=== PATIENT | male | born 1935 | race Caucasian/White ===

== ENCOUNTER → 2016-10-01 | Outpatient (CLI) | payer OTHER ==
[~2016-10-01] MED LIST: ASPEC81 PO; ATEN-173 PO; ATOR-22 PO; ATV1 PO; B-COCAP2 PO; GLUCOSAMINE CHRON PO; LEVO-217 PO; OMEG10007 PO; PRLSR20 PO; SAW PALMETTO PO; VIT C WITH ROSE HIPS PO
[2016-10-01 11:25] LABS: BLOOD UREA NITROGEN 27 mg/dl (7-18); BUN/CREATININE RATIO 22.3 (10-20)
[2016-10-01 11:29] LABS: PROSTATE SPECIFIC ANTIGEN 0.449 ng/ml (0.000-4.000)
== END | disposition home or self-care (01) ==
LOC: C.LAB 09:45
PROVIDERS: ATTEND Urology
DX: R33.9 Retention of urine, unspecified (principal)

== ENCOUNTER → 2017-01-07 | Outpatient (CLI) | payer OTHER ==
[2017-01-07 09:33] LABS: BASO % 0.6 %; BASO ABS # 0.03 K/uL (0-0.2); COMPLETE YES; EOS % 3.7 %; HEMATOCRIT 45.5 % (42-52); LYMPH % 27.9 %; LYMPH ABS # 1.52 K/uL (1.2-3.4); MEAN CELL VOLUME 92.3 fL (80-100); MEAN CORPUSCULAR HEMOGLOBIN 30.4 pg (25-34); MEAN PLATELET VOLUME 11.3 fL (7.4-10.4); MONO % 12.7 %; NEUT % 55.1 %; PLATELET COUNT 132 K/uL (130-400); RED BLOOD COUNT 4.93 M/uL (4.7-6.1); WHITE BLOOD COUNT 5.44 K/uL (4.8-10.8)
[2017-01-07 10:06] LABS: ESTIMATED AVERAGE GLUCOSE 123 mg/dl; HA1C FLAG Normal (Normal)
[2017-01-07 10:10] LABS: ALT/SGPT 28 U/L (12-78); AST/SGOT 36 U/L (15-37); BLOOD UREA NITROGEN 23 mg/dl (7-18); BUN/CREATININE RATIO 17.9 (10-20); CARBON DIOXIDE 27 mmol/L (21-32); CHLORIDE 109 mmol/L (98-107); GLUCOSE 105 mg/dl (70-99); POTASSIUM 4.5 mmol/L (3.5-5.1); SODIUM 144 mmol/L (136-145)
[2017-01-07 10:24] LABS: ALKALINE PHOSPHATASE 162 U/L (45-117); CHOLESTEROL 111 mg/dl (0-200); CHOLESTEROL/HDL RATIO 2.5; HDL CHOLESTEROL 44 mg/dl; LDL CHOLESTEROL CALCULATED 52 mg/dl; TRIGLYCERIDES 76 mg/dl (0-150); VERY LOW DENSITY LIPOPROT CALC 15 mg/dl
== END | disposition home or self-care (01) ==
LOC: C.LAB 07:03
PROVIDERS: ATTEND Internal Medicine
DX: N18.3 Chronic kidney disease, stage 3 (moderate) (principal); R73.01 Impaired fasting glucose; E03.9 Hypothyroidism, unspecified

== ENCOUNTER → 2017-09-23 | Outpatient (CLI) | payer OTHER ==
[~2017-09-23] MED LIST changes: +APIX1TAB3 PO; +ASPI-319 PO; +ATV/1 PO; +CHOL1000 PO; +CMD5 PO; +CRG3125 PO; +CRG625 PO; +DUTACAP PO; +DXY100 PO; +FURO-85 PO; +LEVO50TA PO; +LISI-730 PO; +LISI20TA3 PO; +LSX20 PO; +LVNIS80 SQ; +METO-478 PO
[2017-09-23 12:36] LABS: BLOOD UREA NITROGEN 22 mg/dl (7-18)
== END | disposition home or self-care (01) ==
LOC: C.LAB 10:17
PROVIDERS: ATTEND Urology
DX: N40.1 Benign prostatic hyperplasia with lower urinary tract symptoms (principal); R33.9 Retention of urine, unspecified

== ENCOUNTER → 2017-10-16 | Outpatient (CLI) | payer OTHER ==
[~2017-10-16] MED LIST changes: -APIX1TAB3 PO; -ASPI-319 PO; -ATV/1 PO; -CHOL1000 PO; -CMD5 PO; -CRG3125 PO; -CRG625 PO; -DUTACAP PO; -DXY100 PO; -FURO-85 PO; -LEVO50TA PO; -LISI-730 PO; -LISI20TA3 PO; -LSX20 PO; -LVNIS80 SQ; -METO-478 PO
== END | disposition home or self-care (01) ==
LOC: C.LAB 15:02
PROVIDERS: ATTEND Urology
DX: R30.0 Dysuria (principal)

== ENCOUNTER → 2018-01-20 | Outpatient (CLI) | payer OTHER ==
[2018-01-20 09:37] LABS: BASO % 0.6 %; BASO ABS # 0.03 K/uL (0-0.2); EOS % 2.9 %; EOS ABS # 0.15 K/uL (0-0.5); HEMOGLOBIN 14.9 g/dL (14.0-18.0); LYMPH % 25.8 %; LYMPH ABS # 1.35 K/uL (1.2-3.4); MEAN CELL VOLUME 90.5 fL (80-100); MEAN CORPUSCULAR HEMOGLOBIN 30.7 pg (25-34); MEAN CORPUSCULAR HGB CONC 33.9 g/dl (32-36); MEAN PLATELET VOLUME 10.4 fL (7.4-10.4); MONO % 12.4 %; MONO ABS # 0.65 K/uL (0.11-0.59); NEUT % 58.3 %; NEUT ABS # 3.06 K/uL (1.4-6.5); PLATELET COUNT 145 K/uL (130-400); RED CELL DISTRIBUTION WIDTH SD 46.6 fL (36.4-46.3); WHITE BLOOD COUNT 5.24 K/uL (4.8-10.8)
[2018-01-20 09:47] LABS: ALBUMIN 3.8 gm/dl (3.4-5.0); ALT/SGPT 28 U/L (12-78); AST/SGOT 37 U/L (15-37); BLOOD UREA NITROGEN 23 mg/dl (7-18); CALCIUM 9.3 mg/dl (8.5-10.1); CARBON DIOXIDE 28 mmol/L (21-32); CHOLESTEROL 114 mg/dl (0-200); CREATININE 1.18 mg/dl (0.60-1.40); GLUCOSE 93 mg/dl (70-99); POTASSIUM 4.4 mmol/L (3.5-5.1); SODIUM 141 mmol/L (136-145)
[2018-01-20 09:49] LABS: ALKALINE PHOSPHATASE 129 U/L (45-117); LDL CHOLESTEROL CALCULATED 52 mg/dl; TOTAL PROTEIN 7.4 gm/dl (6.4-8.2)
[2018-01-20 10:05] LABS: HEMOGLOBIN A1C 5.7 % (4.5-5.6)
== END | disposition home or self-care (01) ==
LOC: C.LAB 07:27
PROVIDERS: ATTEND Internal Medicine
DX: E78.5 Hyperlipidemia, unspecified (principal)

== ENCOUNTER → 2018-04-16 | Outpatient (CLI) | payer OTHER ==
[~2018-04-16] MED LIST changes: +APIX1TAB3 PO; -ASPEC81 PO; +ASPI-319 PO; -ATEN-173 PO; +ATV/1 PO; -ATV1 PO; +B-CO1CAP17 PO; -B-COCAP2 PO; +CHOL1000 PO; +CMD5 PO; +CRG3125 PO; +CRG625 PO; +DUTACAP PO; +DXY100 PO; +FURO-85 PO; -LEVO-217 PO; +LEVO50TA PO; +LISI-730 PO; +LISI20TA3 PO; +LSX20 PO; +LVNIS80 SQ; -SAW PALMETTO PO
== END | disposition home or self-care (01) ==
LOC: C.LABBC 09:11
PROVIDERS: ATTEND Internal Medicine
DX: A41.4 Sepsis due to anaerobes (principal)

== ENCOUNTER → 2018-04-17 | Outpatient (CLI) | payer OTHER ==
[2018-04-17 09:25] LABS: HEMATOCRIT 42.9 % (42-52); HEMOGLOBIN 13.8 g/dL (14.0-18.0); MEAN CELL VOLUME 92.7 fL (80-100); MEAN CORPUSCULAR HEMOGLOBIN 29.8 pg (25-34); MEAN CORPUSCULAR HGB CONC 32.2 g/dl (32-36); MEAN PLATELET VOLUME 10.1 fL (7.4-10.4); PLATELET COUNT 197 K/uL (130-400); RED CELL DISTRIBUTION WIDTH CV 15.7 % (11.5-14.5); RED CELL DISTRIBUTION WIDTH SD 53.7 fL (36.4-46.3); WHITE BLOOD COUNT 5.45 K/uL (4.8-10.8)
[2018-04-17 09:32] LABS: INR 1.2 (0.9-1.1); PTT PATIENT 26.8 SECONDS (21.0-31.0)
[2018-04-17 09:49] LABS: BLOOD UREA NITROGEN 20 mg/dl (7-18); CALCIUM 9.2 mg/dl (8.5-10.1); CARBON DIOXIDE 26 mmol/L (21-32); CREATININE 1.11 mg/dl (0.60-1.40); GLUCOSE 105 mg/dl (70-99); POTASSIUM 4.2 mmol/L (3.5-5.1); SODIUM 141 mmol/L (136-145)
== END | disposition home or self-care (01) ==
LOC: C.LAB 08:57
PROVIDERS: ATTEND Internal Medicine Cardiovascular Disease
DX: Z01.818 Encounter for other preprocedural examination (principal)

== ENCOUNTER 2018-04-22 08:17 | Observation (INO) | payer OTHER ==
[2018-04-22] VITALS (9 sets, daily range): BP systolic 151–184; BP diastolic 60–89; PULSE 59–86; TEMP 36.3–36.8; O2SAT 95–100; Ht 171.5 cm; Wt 73.7 kg
[~2018-04-22] VITALS: Ht 171.5 cm; Wt 73.7 kg
[~2018-04-22 08:17] MED LIST changes: -APIX1TAB3 PO; +CEFAZOLIN 1000MG IV PUSH 7.5 ML IV SCH; -CHOL1000 PO; -CRG625 PO; -FURO-85 PO; +LACTATED RINGER'S 1000ML IV SCH; -LISI20TA3 PO; -OMEG10007 PO
[2018-04-22] MEDS ORDERED: LISI20TA3 PO (09:16)
[2018-04-22] MEDS ORDERED: FURO-85 PO (09:18)
[2018-04-22] MEDS ORDERED: OMEG10007 PO (09:24)
[2018-04-22] MEDS ORDERED: CHOL1000 PO (09:24)
[2018-04-22] MEDS ORDERED: LIDOCAINE HCL 1% 20 ML VIAL ONE (09:35)
[2018-04-22] MEDS ORDERED: BACITRACIN 50000 UNIT VIAL ONE ×2 (09:35→11:57)
[2018-04-22] MEDS ORDERED: BACITRACIN OINT 0.9 GM PKT ONE (09:35)
--- NOTE | 2018-04-22 09:55 | History & Physical Bridge Note ---
H&P Re-Evaluation Bridge Note: I have examined the patient, reviewed the History & Physical and in the interval since the performance of the History & Physical I have noted the following changes of clinical significance: No changes noted. I reviewed the indications, procedure, risks and alternatives of biventricular ICD implantation with the patient and his and they understand and he agrees to proceed. Consent obtained. I also reviewed conscious sedation and he agrees and signed consent. His son Donald came in during the end of the discussion.
--- NOTE | 2018-04-22 09:57 | Pre Sedation Assessment ---
Pre Sedation Assessment General Date of Sedation: Apr 22, 2018. Vital Signs Past 12 Hours Date Time Temp Pulse Resp B/P (MAP) Pulse Ox O2 Delivery O2 Flow Rate FiO2 04/22/18 09:26 36.7 86 20 184/89 (120) 100 Room Air Review Cardiovascular: no edema, no gallop, no JVD, + irregularly irregular Lungs: lungs clear, normal breath sounds, no respiratory distress Pre-Sedation Airway Assessment Smoking Status: Never Smoker Hx of Sleep Apnea: No Hx of difficult intubation: No Short Thick Neck: No Thyro-mental Distance: > 3 Finger Breadths Oral Cavity: WNL Mallampati Classification: Class II ASA Classification: Class II NPO Status Date of Last Intake of Fluids: Apr 21, 2018 Time of Last Intake of Fluids: 2129 Date of Last Intake of Solids: Apr 21, 2018 Time of Last Intake of Solids: 1800 Procedure Planning Contraindications for Sedation: None Current Medications Reviewed: Yes Notes The planned sedation has been discussed with the patient. Informed Consent was obtained. I have identified the patient, determined the appropriateness of sedation and have assessed the patient immediately prior to the procedure. All medicine(s) and interventions are by my order.
[2018-04-22] MEDS ORDERED: FENTANYL CITRATE INJ 50 MCG/1 ML 2 ML VIAL ONE ×2 (10:22→11:22)
[2018-04-22] MEDS ORDERED: MIDAZOLAM HCL 5 MG/ML 1 ML VIAL ONE (10:22)
[2018-04-22] MEDS ORDERED: MIDAZOLAM HCL 1 MG/ML 2ML VIAL ONE (11:39)
[2018-04-22] MEDS ORDERED: IV FLUIDS COMPLETED PRN (12:00)
--- NOTE | 2018-04-22 12:35 | [facility] Operative Report ---
Operative Report Operative Date Apr 22, 2018. Pre-Operative Diagnosis Cardiomyopathy, persistent atrial fibrillation Post-Operative Diagnosis Same Procedure(s) Performed Biventricular ICD implantation Coronary sinus venogram Surgeon Dr. Ny Brick Layer Surgeon(s) None Estimated Blood Loss 50 cc Findings In atrial fibrillation Good lead position for all 3 leads with good measurements Specimens None Anesthesia Local with sedation Complication(s) None Disposition PCU Description of Procedure After obtaining informed consent for the procedure, the patient was brought to the laboratory and prepped and draped in the standard sterile manner. The left prepectoral region was anesthetized with 1% lidocaine local anesthetic and left axillary venipuncture was performed by percutaneous technique and a guidewire placed through the left subclavian vein into the superior vena cava. The area was further infiltrated with 1% lidocaine local anesthetic and a 5 cm incision was made parallel to the left clavicle and 2 cm below it and carried down to the anterior pectoralis fascia. An ICD pocket was formed by blunt dissection anterior to the pectoralis fascia and a bacitracin-soaked sponge (50,000 units in 50 cc normal saline solution) was placed in the pocket. A 10.5 [place] Medtronic lead introducer was placed over the guidewire into the left subclavian vein, the dilator and guidewire were removed and a bipolar active fixation steroid tipped ventricular ICD lead was advanced through the introducer into the superior vena cava. A guidewire was placed through the introducer and the introducer was stripped from the lead and guidewire. An 9 [place] Medtronic lead introducer was placed over the guidewire into the left subclavian vein, the dilator and guidewire were removed and a bipolar active fixation steroid tipped atrial lead was advanced through the introducer into the superior vena cava. A guidewire was placed back through the introducer and the introducer was stripped from the lead and guidewire. Using a curved stylette the ventricular lead was advanced through the right ventricular outflow tract into the pulmonary artery and then using a straight stylette was positioned in the right ventricular apex. The screw was extended fixing the lead in position. Pacing and sensing thresholds were evaluated in bipolar configuration and are recorded on the implant data sheet. Diaphragmatic pacing was evaluated at a 10 V bipolar output as indicated on the data sheet. Using a curved stylette the atrial lead was positioned in the region of the atrial appendage and the screw extended fixing the lead in position. Pacing and sensing thresholds were evaluated in bipolar configuration and are recorded on the implant data sheet. Diaphragmatic pacing was evaluated at a 10 V bipolar output as indicated on the data sheet. Once the leads were in position they were attached to the anterior pectoralis fascia using 1 suture of 2-0 silk around each lead collar. The short guidewire was exchanged for a long guidewire and a Jakob coronary sinus sheath was advanced to position in the right atrium. The curved obturator was placed through the sheath and using x-ray dye the os of the coronary sinus was identified. A guidewire was placed through the introducer into the coronary sinus and the Wright sheath was advanced into the coronary sinus. A balloon occlusion catheter was advanced through this sheath into the coronary sinus, the balloon was inflated and dye was injected in various projections to obtain a coronary sinus angiogram. A good vessel was identified and a 0.014 inch guidewire was advanced into this vessel. A quadripolar coronary sinus catheter was advanced over the guidewire into good distal position. The left ventricular pacing threshold was evaluated in various configurations, as recorded on the implant data sheet. Diaphragmatic pacing was evaluated at a 10 V output, as indicated on the data sheet. Once this lead was in position the introducer system was removed from the lead and the lead was attached to the anterior pectoral fascia using 2 sutures of 2-0 silk around the lead collar. An additional suture of 2-0 silk was placed around each of the atrial and ventricular lead collars as well. The bacitracin-soaked sponge was removed from the pocket, hemostasis was obtained, the ICD was attached to the leads and placed in the pocket with the leads coiled beneath it. The incision was closed with a running double subcutaneous closure of 3-0 Vicryl absorbable suture, followed by running subcuticular skin closure of 4-0 Vicryl absorbable suture. Bacitracin ointment was placed on the incision and a pressure dressing applied. I attest to the content of the Intraoperative Record and any orders documented therein. Any exceptions are noted below.
--- NOTE | 2018-04-22 12:36 | Post Sedation Assessment ---
Post Sedation Assessment General Date of Sedation Apr 22, 2018. Vital Signs: Vital Signs Past 12 Hours Date Time Temp Pulse Resp B/P (MAP) Pulse Ox O2 Delivery O2 Flow Rate FiO2 04/22/18 12:28 82 16 154/79 (104) 98 Room Air 04/22/18 12:18 80 16 150/79 (102) 98 Room Air 04/22/18 09:26 36.7 86 20 184/89 (120) 100 Room Air Post Procedure Recovery Score Activity: (2) Moves 4 extremities * Respiration: (2) Deep breath/cough Circulation: (2) +/-20% PreAnes Value Consciousness: (2) Fully Awake Oxygen Saturation: (2) > 92% On Room Air Post Anesthesia Score: 10 Discharge Sedation Level of Care: Fast Track Phase II Post Sedation Plan On clinical assessment, the patient appears to have tolerated the sedation without complications. Patient is recovering as anticipated. Patient will continue to be monitored by nursing and may be discharged when sedation discharge criteria are met per below protocol. Upon Completions of procedure and additional 15 minutes continue every 5 minute vital signs and the P.A.R. score; then discharge to a Phase I or Fast Track to Phase II per the following guidelines: * Discharge Patient to appropriate Phase II area if PAR is 8 or greater or return to pre- procedure baseline. The post - procedure orders will be as directed. * If PAR score is less than 8 or not return to pre-procedure baseline then patient will follow Phase I monitoring till PAR is reached for Phase II. The Phase I may be done in procedure room or may call to secure a Phase I area. * If naloxone or flumazenil are used for reversal, hold in Phase I for an additional 60 -120 minutes before discharge to Phase II. Please call the Sedation Physician to re-evaluate and complete post-note for discharge to Phase II area. Do NOT discharge from procedure sedation or Phase 1 until post- sedation evaluation note is complete by procedure /sedation MD Sedation Discharge Instructions to be given to the patient at discharge to home.
[2018-04-22] MEDS ORDERED: KETOROLAC TROMETHAMINE 10 MG TAB PO PRN (12:45)
[2018-04-22] MEDS ORDERED: ACETAMINOPHEN 325 MG TAB PO PRN (12:45)
[2018-04-22] MEDS ORDERED: LORAZEPAM 1 MG TAB PO PRN (12:45)
[2018-04-22] MEDS ORDERED: ASPIRIN 81 MG ECTAB PO SCH (12:45)
[2018-04-22] MEDS ORDERED: FUROSEMIDE 20 MG TAB PO PRN (12:45)
[2018-04-22] MEDS: CEFAZOLIN IV 1,000 MG in SYRINGE 0 ML IV SCH ×2 (15:25→22:07)
[2018-04-22] MEDS ORDERED: WARFARIN SOD 5 MG TAB PO SCH (16:00)
[2018-04-22] MEDS: CARVEDILOL 6.25 MG TAB PO SCH (20:48)
[2018-04-23 04:06] VITALS: BP 156/74; PULSE 60; TEMP 36.4; O2SAT 97
[2018-04-23] MEDS: CEFAZOLIN IV 1,000 MG in SYRINGE 0 ML IV SCH (05:30)
[2018-04-23] MEDS ORDERED: LEVOTHYROXINE 50 MCG TAB PO SCH (06:00)
--- NOTE | 2018-04-23 06:51 | DIAGNOSTIC IMAGING REPORT ---
CHEST 2 VIEWS ROUTINE HISTORY: 82 years-old Male EXACT TIME ORDERED Evaluate for pneumothorax and lead placement status post placement of a left subclavian pacer/AICD COMPARISON: Chest radiograph 03/29/2018 TECHNIQUE: PA and lateral views of the chest FINDINGS: Prior median sternotomy. Cardiac silhouette is upper limits of normal in size. Calcification of the aorta. Status post placement of a left subclavian pacer/AICD with leads overlying the ventricles and right atrium. Leads appear to be intact. No postprocedural pneumothorax identified. Moderate hemidiaphragmatic elevation redemonstrated with subsegmental right basilar opacities suggesting atelectasis/scarring. A trace right pleural effusion may also be present. This appears unchanged. The left lung is generally clear. No overt pulmonary edema. Degenerative changes of the shoulders and spine. Surgical clips project over the upper abdomen. IMPRESSION: Status post placement of a left subclavian pacer/AICD without postprocedural pneumothorax. The above report was generated using voice recognition software. It may contain grammatical, syntax or spelling errors. Electronically signed by: Jeffery Velasquez M.D. 04/23/2018 6:50 AM Dictated Date/Time: 04/23/2018 6:48 AM
[2018-04-23 06:53] LABS: INR 1.1 (0.9-1.1)
[2018-04-23 07:44] VITALS: BP 159/76; PULSE 69; TEMP 36.5; O2SAT 96
[2018-04-23] MEDS: CARVEDILOL 6.25 MG TAB PO SCH (08:26)
--- NOTE | 2018-04-23 08:37 | Discharge Instructions ---
Discharge Instructions Date of Service Apr 23, 2018. Admission Cardiomyopathy Discharge Discharge Diagnosis / Problem: Biventricular ICD implantation Discharge Goals Goal(s): Improve disease control Activity Recommendations Activity Limitations: as noted below . Instructions / Follow-Up Instructions / Follow-Up ACTIVITY RECOMMENDATIONS: * Do not raise affected arm over head for 2 weeks. SPECIAL CARE INSTRUCTIONS: * If bleeding occurs, apply direct pressure to area for 5 minutes. * Call your doctor if you have severe pain, fever, drainage or bleeding at site. * Keep dressing on and dry for 48 hours then remove. * Keep any scheduled doctor's appointment. * Implant Card - hand held device with website information given. SKIN IRRITATION: * You may experience some redness and/or swelling in the area where radiation was administered. If any skin irritation occurs, please contact your family physician. FOLLOW UP VISIT: 04/26/2018 @ 10:30 am for incision check 05/19/2018 @ 10:30 am for follow-up 05/26/2018 @ 1:00 pm for device check Current Hospital Diet Patient's current hospital diet: AHA Diet (Heart Healthy) Discharge Diet Recommended Diet: AHA Diet (Heart Healthy), Low Sodium Diet (2gm Na) Pending Studies Studies pending at discharge: no Medical Emergencies . Who to Call and When: Medical Emergencies: If at any time you feel your situation is an emergency, please call 911 immediately. . Non-Emergent Contact Non-Emergency issues call your: Senior Medical Technologist . . "Provider Documentation" section prepared by Eleonora Amaya. .
[2018-04-23] MEDS ORDERED: NEPHROCAPS PO SCH (09:00)
[2018-04-23] MEDS ORDERED: ATORVASTATIN 20 MG TAB PO SCH (09:00)
[2018-04-23] MEDS ORDERED: LISINOPRIL 20 MG TAB PO SCH (09:00)
[2018-04-23] MEDS ORDERED: PANTOprazole SOD 40 MG TAB PO SCH (09:00)
[2018-04-23] MEDS ORDERED: CRG625 PO (09:21)
[2018-04-23] MEDS ORDERED: APIX1TAB3 PO (09:21)
--- NOTE | 2018-04-23 09:24 | Discharge Summary ---
Discharge Summary Admission Date: Apr 22, 2018 at 12:40 Discharge Date: Apr 23, 2018 Discharge Disposition: Home Primary Diagnosis: Cardiomyopathy Secondary Diagnoses/Problems: Medical Problems: (1) Arrhythmia Status: Acute (2) Ascvd Status: Chronic (3) Chronic Kidney Disease, Stage Iii (Moderate) Status: Chronic (4) Hx-Venous Thrombosis&Embolism Status: Resolved (5) Hypertension Nos Status: Chronic (6) Hypertrophy (Benign) Of Prostate W/O Urinary Obst & Oth Luts Status: Chronic (7) Hypothyroidism Nos Status: Chronic (8) Liver mass Status: Acute (9) Mixed Hyperlipidemia Status: Chronic (10) Sepsis Status: Acute Surgical Problems: (1) Aortocoronary Bypass Status: Chronic (2) S/P cholecystectomy Status: Resolved Procedures: Biventricular ICD implantation Coronary sinus venogram Discharge Instructions Last Recorded Wt (Kilograms): 73.700 Activity Recommendations: limitations as noted below Diet At Discharge: low sodium, low cholesterol Allergies: Coded Allergies: Simvastatin (Verified Allergy, Unknown, PT UNSURE-"TOO LONG AGO", 04/22/18) Additional Instructions: ACTIVITY RECOMMENDATIONS: * Do not raise affected arm over head for 2 weeks. SPECIAL CARE INSTRUCTIONS: * If bleeding occurs, apply direct pressure to area for 5 minutes. * Call your doctor if you have severe pain, fever, drainage or bleeding at site. * Keep dressing on and dry for 48 hours then remove. * Keep any scheduled doctor's appointment. * Implant Card - hand held device with website information given. SKIN IRRITATION: * You may experience some redness and/or swelling in the area where radiation was administered. If any skin irritation occurs, please contact your family physician. FOLLOW UP VISIT: Keep any scheduled doctor appointments. Special Care: Call your doctor if: * Temperature above 101 degrees * Pain not relieved by pain medicine ordered * There is increased drainage or redness from any incision * You have any unanswered questions or concerns. Avoid all tobacco products. If you need help to stop smoking, call [place]'s FREE QUITLINE at . This is a free call. Admission HPI Mr. Figueroa is an 82 year old male with a history of CAD s/p CABG x 5 Vessels at [facility] (1996), CKD, DVT, Dyslipidemia, Aortic Stenosis,Uncontrolled Hypertension, and Recently Diagnosed Atrial Fibrillation with Slow Ventricular Response Rate / Intermittent CHB with Escape Rhythm < 30 bpm, and a Cardiomyopathy (LVEF 35%) who presents for Cardiologic followup. Patient was admitted to [facility] on 03/25/18 with complaints of worsening dyspnea, generalized weakness, fever, and gastrointestinal symptoms. 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 He was found to be in Atrial Fibrillation with slow ventricular response. His metoprolol was discontinued with improvement in his heart rate. His echocardiogram demonstrated evidence of reduced left ventricular systolic function. His troponin levels were mildly elevated but not diagnostic of myocardial infarction and he had no anginal symptoms. He was felt to to be hypervolemic which may have been iatrogenic as he was given IV fluids. He required diuresis and was discharged on Lasix 20 mg daily. Given his cardiomyopathy he was initiated on Lisinopril 5 mg daily and Carvedilol 3.125 mg twice daily. During his admission he had positive blood cultures and is being followed by Dr. Sanches. It is unclear what the source of his infection was and he continues on antibiotic therapy. He also had evidence of thrombocytopenia which improved at the time of discharge. 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 Additionally, he was noted to have a DVT and was started on anticoagulation with Coumadin. Patient [place] biopsy of his hepatic mass [place] [facility] During that hospitalization patient was still markedly bradycardic, so a Cardiology consultation was obtained, and his Carvedilol was discontinued. Patient subsequently underwent a Holter Monitor on 04/07/2018 which showed: -- Atrial Fibrillation with slow ventricular response rate and an IVCD. -- Average HR 48 bpm. -- Minimum HR 27 bpm. -- Maximum HR 94 bpm. -- Non-sustained V-tach. -- Frequent isolated and couplet PVCs. -- Periods of regular R-R intervals indicating high grade heart block with junctional vs ventricular escape rhythm. -- No cardiac Pauses. He has had the following Cardiac Studies / Procedures: CABG x 5 Vessels including DENNY and LALITA (1996) [facility]. ECHOCARDIOGRAM 03/26/18: -- Mildly dilated left ventricle with moderately reduced systolic function. -- LVEF 35% with global hypokinesis. -- Mild left ventricular hypertrophy. -- Right ventricular systolic function is reduced as assessed by tricuspid annular plane systolic excursion (TAPSE) (TAPSE <1.6 cm). -- Moderate biatrial dilation. -- Mild aortic stenosis with trace regurgitation. -- Aortic stenosis may be underestimated secondary to reduced LV systolic function. -- Mild mitral regurgitation. -- Mild to moderate tricuspid regurgitation. -- Severely elevated RVSP; 67mmHg. The present time, patient offers no complaints. He still notes some mild exertional dyspnea, but is still working. He has not had any lightheaded spells , fainting spells, weak spells, dizziness, or syncope. He denies any exertional chest pain, heaviness, tightness, pressure, or discomfort. He denies any exertional angina pectoris. He has not had any exertional neck, jaw, back, or arm pain. He denies any orthopnea or PND. He does note occasional palpitations but these you very brief and on Holter monitor these palpitations corresponded to PVCs. Admission Physical Exam Additional Comments: General: Chronically ill-appearing white male in no acute distress. HEENT: Head is atraumatic, normocephalic. EOMs intact. Sclerae anicteric. Facies symmetric. No perioral cyanosis. Neck: No JVD. Carotid upstrokes +2 bilaterally without bruits. JVP is just above the clavicle sitting upright. Chest and Lungs: Mildly diminished breath sounds throughout, no obvious wheezes or rales. CVS: S1 and S2 irregularly irregular, bradycardic, with a grade 2/6 basal systolic murmur which radiates to the suprasternal notch and left sternal border. No diastolic murmurs appreciated. No gallops or rubs. PMI is nondisplaced. No lifts, heaves, or thrills. No abdominal aortic or renal bruits. Abdominal Exam: Bowel sounds present. No masses, organomegaly, or tenderness. Extremities: No clubbing or cyanosis. +1 Pretibial edema bilaterally. Intact posterior tibial and radial pulses bilaterally. Neurologic Exam: Patient is awake, alert, and oriented. Pleasant and cooperative. Answers questions appropriately. Speech is clear. Normal movement in all 4 extremities. Gait pattern is unremarkable. Hospital Course Mr. Figueroa is an 82-year-old male with a past medical history significant for CAD s/p CABG x 5, CKD, DVT, Dyslipidemia, Aortic Stenosis, Hypertension, and Atrial Fibrillation with Slow Ventricular Response Rate / Intermittent CHB with Escape Rhythm < 30 bpm, and a Cardiomyopathy (LVEF 35%) who underwent implantation of a biventricular ICD on 04/22/[address] Ny. He tolerated the procedure well. Device check the following day showed excellent sensing and pacing characteristics. CXR showed good lead placement and no evidence of pneumothorax. He was deemed stable for discharge home on 04/23/18. He was initiated on Carvedilol 6.25 mg BID prior to discharge. His warfarin was also switched to Eliquis 5 mg BID. He will have follow-up in 3 days for incision check and in 1 month for device check. Total time spent on discharge = This includes examination of the patient, discharge planning, medication reconciliation, and communication with other providers.
--- NOTE | 2018-04-23 09:26 | Cardiology Follow-Up ---
Subjective Date of Service: Apr 23, 2018. Pt evaluation today including: conversation w/ patient, physical exam, lab review, review of studies, review of inpatient medication list History of Present Illness He feels well post ICD implantation yesterday, no significant incisional discomfort. He does have occasional diaphragmatic pacing that he noticed although did not bother him much. Social History Smoking Status: Never Smoker History of Alcohol Use: No Review of Systems Respiratory: No cough, No shortness of breath Cardiac: No chest pain Minor incisional discomfort Objective Vital Signs Past 12 Hours Date Time Temp Pulse Resp B/P (MAP) Pulse Ox O2 Delivery O2 Flow Rate FiO2 04/23/18 08:00 Room Air 04/23/18 07:44 36.5 69 18 159/76 (103) 96 04/23/18 04:06 36.4 60 22 156/74 (101) 97 Room Air 04/22/18 23:29 36.5 60 18 151/73 (99) 98 Room Air Last Recorded Weight-Kilograms: 73.700 Physical Exam Constitutional: Level of Distress: NAD Lungs: Auscultation: breath sounds normal Cardiovascular: Heart Auscultation: RRR, no murmurs, no rubs Extremities: no edema Data Laboratory Results: Last 24 Hours Test 04/23/18 06:24 Prothrombin Time 11.1 SECONDS Prothromb Time International Ratio 1.1 Imaging: Chest x-ray shows good lead position, no pneumothorax EKG: Ventricular pacing with an appropriate biventricular paced complex Telemetry reviewed: Underlying atrial fibrillation, ventricular paced rhythm ICD evaluation: Excellent pacing and sensing characteristics. Assessment and Plan 1. Postop day #1: Post biventricular ICD implantation yesterday. The device is working well, the x-ray looks good with good lead position and no pneumothorax and the site looks good with no bleeding. Stable for discharge. We did adjust his left ventricular output to minimize diaphragmatic pacing, there are a lot of other options still in terms of programming. 2. Atrial fibrillation: He has persistent atrial fibrillation, identified about 1 month ago at the time of his hospitalization. He has been on warfarin anticoagulation, however I discussed options with him we are going to switch to Eliquis. He is going to start that this evening we will give him samples in the office as well as a prescription card. If there is some issue with that we can transition him back to warfarin. He needs to be on this indefinitely, however in the future we should consider cardioversion. 3. Left ventricular dysfunction: He is now on carvedilol for his cardiomyopathy , that was started yesterday and he is tolerating it well. This is a higher dose than he was discharged on last admission. We will continue to titrate as an outpatient.
[2018-04-23 11:47] VITALS: BP_SYST 125; BP_SYST 149; BP_DIAS 76; PULSE 76; TEMP 36.8; O2SAT 96
== END 2018-04-23 12:25 | disposition home or self-care (01) ==
LOC: C.ACU 08:17 → ENRESERV 11:23 → C.2T 12:40
PROVIDERS: ADMIT Internal Medicine Cardiovascular Disease; ATTEND Internal Medicine Cardiovascular Disease
DX: I42.9 Cardiomyopathy, unspecified (principal); I48.91 Unspecified atrial fibrillation; R00.1 Bradycardia, unspecified; I44.2 Atrioventricular block, complete; I45.4 Nonspecific intraventricular block; I12.9 Hypertensive chronic kidney disease with stage 1 through stage 4 chronic kidney disease, or unspecified chronic kidney disease; I25.10 Atherosclerotic heart disease of native coronary artery without angina pectoris; N18.3 Chronic kidney disease, stage 3 (moderate); E78.5 Hyperlipidemia, unspecified; N40.1 Benign prostatic hyperplasia with lower urinary tract symptoms; N13.8 Other obstructive and reflux uropathy; E78.2 Mixed hyperlipidemia; E03.9 Hypothyroidism, unspecified; E53.8 Deficiency of other specified B group vitamins; Z87.11 Personal history of peptic ulcer disease; Z86.711 Personal history of pulmonary embolism; Z87.440 Personal history of urinary (tract) infections; Z90.49 Acquired absence of other specified parts of digestive tract; Z96.649 Presence of unspecified artificial hip joint; Z95.1 Presence of aortocoronary bypass graft; Z79.01 Long term (current) use of anticoagulants; Z86.718 Personal history of other venous thrombosis and embolism; Z82.49 Family history of ischemic heart disease and other diseases of the circulatory system

== ENCOUNTER → 2018-05-01 | Outpatient (CLI) | payer OTHER ==
[~2018-05-01] MED LIST changes: +APIX1TAB3 PO; -B-CO1CAP17 PO; +B-COCAP2 PO; -CEFAZOLIN 1000MG IV PUSH 7.5 ML IV SCH; +CHOL1000 PO; -CMD5 PO; -CRG3125 PO; +CRG625 PO; -DXY100 PO; +FURO-85 PO; -LACTATED RINGER'S 1000ML IV SCH; -LISI-730 PO; +LISI20TA3 PO; -LSX20 PO; -LVNIS80 SQ; +OMEG10007 PO
--- NOTE | 2018-05-01 11:37 | DIAGNOSTIC IMAGING REPORT ---
TWO VIEW CHEST CLINICAL HISTORY: Cough. FINDINGS: PA and lateral chest radiographs are compared to study dated 04/23/2018. A 3-lead cardiac AICD is unchanged in position and partially secures the left upper chest. The patient is status post midline sternotomy. The heart is enlarged and there is atherosclerotic calcification of the thoracic aorta. The pulmonary vasculature is noncongested. Chronic interstitial thickening is similar to previous. No airspace consolidation or pleural effusion is identified. Apical scarring is observed. There is no pneumothorax. The skeletal structures are osteopenic. Degenerative change is noted in the shoulders and thoracic spine. Cholecystectomy clips are noted in the upper abdomen. IMPRESSION: 1. Cardiomegaly and AICD. There is no radiographic evidence of congestive failure. 2. No airspace consolidation or pleural effusion is identified. Electronically signed by: Ulises Gutierrez M.D. 05/01/2018 11:35 AM Dictated Date/Time: 05/01/2018 11:34 AM
== END | disposition home or self-care (01) ==
LOC: C.RADBC 10:51
PROVIDERS: ATTEND Internal Medicine
DX: Z51.81 Encounter for therapeutic drug level monitoring (principal); R04.2 Hemoptysis; Z79.01 Long term (current) use of anticoagulants; Z95.810 Presence of automatic (implantable) cardiac defibrillator; I51.7 Cardiomegaly

== ENCOUNTER 2020-06-22 08:27 | Observation (INO) ==
--- NOTE | 2020-05-24 15:47 | PAT Medication Instructions ---
Medication Instructions Date of Service May 24, 2020 Home Medications Medication Instructions Recorded pantoprazole 40 mg tablet,delayed 40 mg PO QAM #90 tab 02/21/20 release carvedilol 25 mg tablet 25 mg PO BID #180 tab 04/18/20 ascorbic acid (vitamin C) 500 mg tablet 500 mg PO QAM cholecalciferol (vitamin D3) 25 mcg (1,000 unit) capsule 1,000 units PO QAM aspirin 81 mg tablet,delayed release 81 mg PO Q2D amoxicillin 2,000 mg PO UD PRN atorvastatin 40 mg PO HS clotrimazole-betamethasone 1 appln TOP UD PRN dutasteride-tamsulosin 1 cap PO HS glucosamine sulfate 1,000 mg PO BID levothyroxine 75 mcg PO QAM losartan [Cozaar] 100 mg PO QPM vitamin B complex 1 cap PO QAM pantoprazole 40 mg tablet,delayed release 40 mg PO QAM carvedilol 25 mg tablet 25 mg PO BID Eliquis 5 mg PO BID Continue as directed amoxicillin 2,000 mg PO UD PRN (if needed) ASK your prescriber and surgeon Eliquis 5 mg PO BID (in order for spinal anesthesia, Eliquis needs to be stopped 72 hours/3 days before surgery. Please check if okay with doctor that prescribes this to you) STOP taking 2 weeks before surgery (or as soon as possible if surgery is within 2 weeks) glucosamine sulfate 1,000 mg PO BID STOP taking 24 hours before surgery clotrimazole-betamethasone 1 appln TOP UD PRN DO NOT take the morning of surgery ascorbic acid (vitamin C) 500 mg tablet 500 mg PO QAM cholecalciferol (vitamin D3) 25 mcg (1,000 unit) capsule 1,000 units PO QAM vitamin B complex 1 cap PO QAM Take morning of surgery With a small sip of water, OTHERWISE NOTHING TO EAT OR DRINK AFTER MIDNIGHT: aspirin 81 mg tablet,delayed release 81 mg PO Q2D (unless otherwise directed by surgeon) levothyroxine 75 mcg PO QAM pantoprazole 40 mg tablet,delayed release 40 mg PO QAM carvedilol 25 mg tablet 25 mg PO BID Take evening before surgery atorvastatin 40 mg PO HS dutasteride-tamsulosin 1 cap PO HS losartan [Cozaar] 100 mg PO QPM carvedilol 25 mg tablet 25 mg PO BID Other Notes If you have any questions please call us at [phone] or [phone] or [phone] or [phone]
--- NOTE | 2020-05-25 13:20 | Anesthesiology Consultation ---
Date of Service May 25, 2020 Assessment & Plan (1) Encounter for pre-operative examination: Cardiology 05/21/20 1. Biventricular ICD: The ICD was fully evaluated today including threshold measurements and interrogation of data storage. It is working well with stable thresholds. Battery voltage remains adequate. He has remained in atrial fibrillation since his last visit. He has had no significant ventricular arrhythmias and no ICD shocks...Coronary disease: Clinically stable with no anginal symptoms..Cardiomyopathy: He has underlying coronary disease but his left ventricular function has nearly normalized with biventricular pacing and medical therapy suggesting there may have been a nonischemic component. Currently he is on appropriate doses of carvedilol and losartan... His systolic blood pressure is elevated today, evidently it fluctuates somewhat. I have not adjusted his medications. Patient was seen for official cardiac clearance with Georges Mills PA-C, on 04/26/20. "Based on his Negative Lexiscan Cardiolite September 2019, Normal LV systolic function on Echo 09/29/2019, and has stable exertional tolerance -- patient is a low to intermediate cardiac risk for his upcoming elective joint replacement. Patient was advised to take Coreg 25 mg the morning of surgery with sips of water. Hold losartan on the morning of surgery. Patient may hold Eliquis x 3 days leading up to surgery, and should resume Eliquis postoperatively when hemostasis allows. There is no need for further cardiac workup at this time." COVID Status: As of 05/24 assessment, patient denies travel to endemic area, known exposure/sick contacts, or symptoms of COVID19. Patient instructed that they and their household members must follow strict social distancing guidelines, wear a mask in public and avoid travel for 14 days prior to surgery. Preoperative COVID19 testing to be completed prior to surgery per surgeon's arrangements. Patient made aware to self-isolate as much as possible between COVID testing and surgery. Chart Review Chart Review: Acceptable Risk for Surgery and Patient seen in Pre Admission Testing Teaching & Discussion Instructed NPO after midnight before surgery, except medications with 15 cc of water. Medication instructions provided according to the PAT guidelines. History Surgery Operation Date: 06/22/20 14:20 Proposed Procedures p Left Total Knee Arthroplasty - Abdifatah Pugh MD Height/Weight Height: 5 ft 9 in Weight: 81.1 kg Allergies Allergy/AdvReac Type Severity Reaction Status Date / Time simvastatin Allergy Unknown LEG CRAMPS Verified 05/24/20 09:31 Medications Home Medications Medication Instructions Recorded Confirmed Last Taken ascorbic acid (vitamin C) 500 mg 500 mg PO QAM 07/23/19 05/24/20 Unknown tablet cholecalciferol (vitamin D3) 25 1,000 units PO QAM 07/23/19 05/24/20 Unknown mcg (1,000 unit) capsule aspirin 81 mg tablet,delayed 81 mg PO Q2D tab 09/22/19 05/24/20 Unknown release amoxicillin 2,000 mg PO UD PRN 12/05/19 05/24/20 Unknown atorvastatin 40 mg PO HS 12/05/19 05/24/20 Unknown clotrimazole-betamethasone 1 appln TOP UD PRN 12/05/19 05/24/20 Unknown dutasteride-tamsulosin 1 cap PO HS 12/05/19 05/24/20 Unknown glucosamine sulfate 1,000 mg PO BID 12/05/19 05/24/20 Unknown levothyroxine 75 mcg PO QAM 12/05/19 05/24/20 Unknown losartan [Cozaar] 100 mg PO QPM 12/05/19 05/24/20 Unknown vitamin B complex 1 cap PO QAM 12/05/19 05/24/20 Unknown pantoprazole 40 mg tablet,delayed 40 mg PO QAM #90 tab 02/21/20 05/24/20 Unknown release carvedilol 25 mg tablet 25 mg PO BID #180 tab 04/18/20 05/24/20 Unknown Eliquis 5 mg PO BID 05/24/20 05/24/20 Unknown Past Medical History Medical History Anticoagulant long-term use Atrial fibrillation DX 2 YR AGO, NO HX CARDIOVERSION FOLLOW WITH DR PALOMINO Bilateral primary osteoarthritis of knee Biventricular ICD (implantable cardioverter-defibrillator) in place MOST RECENT CHECK: 05/21/20 PACEMAKER/ICD COMBO - [employer] BPH w urinary obs/LUTS Cardiomyopathy CHB (complete heart block) Chronic kidney disease with symptom management only, stage 3 (moderate) History of anesthesia reaction AFTER HEART SURGERY COULDN'T BE STILL BECAME VERY NERVOUS History of pilonidal cyst HTN (hypertension) Hx of venous thrombosis and embolism HX OF 1985 AND PT REPORTS HAS HAD BLOOD CLOT IN LEFT LEG FOR YRS Hx pulmonary embolism 1984 Hyperlipidemia Hypothyroidism Spinal stenosis Exercise / Class Metabolic Activity II 4-5 Yardwork/Stairs/Walk up hill (Goes up and down stairs to the basement a few times per week without limiting CP or SOB; limited only by knee pain) Past Family History Family History Brother , AGE 63 Diabetes Myocardial infarction Father , AGE 65 No problems noted. Mother , AGE 84 No problems noted. Other COPD (chronic obstructive pulmonary disease) Cardiomyopathy Heart disease Hypertension Ovarian cancer Skin cancer (melanoma) Stroke Tuberculosis Past Surgical History Surgical History History of cholecystectomy History of coronary artery bypass graft 1987 [facility] - X 3 History of cystoscopy History of esophagogastroduodenoscopy (EGD) History of hip replacement RIGHT History of liver biopsy Past Anesthesia History No Hx of Anesthesia Complications and No Family Hx of Anesthesia Complications History of PONV No Hx of PONV and No Hx of Motion Sickness Social History Smoking Status: Never smoker Do You Dip or Chew Tobacco: No (remote history, quit 1984) Hx Alcohol Use: No Alcohol type: beer alcohol intake frequency: holidays/special occasions only (very rare) Hx Substance Use: No substance use type: does not use Review of Systems Pt denies any recent chest pain, shortness of breath, palpitations, cough, fever, URI, or uncontrolled acid reflux (just occasional). Physical Exam Vital Signs BP: 182/93 (pt reports white coat HTN, takes BP at home and it is WNL) P: 76bpm SPO2: 97% RA T: 98.2 F R: 16 ENMT Mouth: + dental restorations (permanent caps on all front teeth); no chipped teeth and no loose teeth Thyromental Distance: > or= 3.5 Finger Breadths Mallampati Class: I Neck normal visual inspection and + facial hair (short mustache); neck extension not limited Respiratory normal respiratory effort Auscultation: lungs clear to auscultation bilaterally Cardiovascular Rate/Rhythm: regular rate and regular rhythm Heart Sounds: + murmur (I/ systolic tricuspid area) Extremities: + edema (very very minimal nonpitting edema LLE, RLE WNL) Testing Laboratory Results 05/25/20 13:42 05/25/20 13:42 PT 11.1 Seconds (9.0-12.0) 05/25/20 13:42 INR 1.1 (0.9-1.1) 05/25/20 13:42 APTT 29.7 Seconds (21.0-31.0) 05/25/20 13:42 Blood Type B Negative 05/25/20 13:42 Antibody Screen NEGATIVE 05/25/20 13:42 Anemia appears to be around baseline. Electrocardiogram Date: 05/25/20 Ventricular paced rhythm at 69 bpm. Chest X-Ray Date: 05/25/20 IMPRESSION: 1. Small right pleural effusion and trace left pleural effusion 2. No current evidence of failure 3. No evidence of focal pulmonary consolidation Echocardiogram Date: 09/29/19 EF: 50-55% Fonda not well visualized but appears to be akinetic. Otherwise no regional wall motion abnormalities. Septal motion consistent with pacemaker. No LVH. Mildly dilated right ventricle with mildly reduced systolic function. Biatrial dilation. Mild aortic stenosis with trace regurgitation (MG 10mmHg, PANCHO 1.2-1.3cm2). Mild to moderate mitral regurgitation. Moderate tricuspid regurgitation. Moderate pulmonary hypertension. Estimated RVSP 50 mmHg. No significant change from prior study on 09/01/2018. Stress Test Date: 09/29/19 Impression: 1. There is no significant ischemia suggested. 2. Mid to distal anterior infarct with jigna-infarct ischemia. 3. Mid to distal inferior infarct. 4. Apical infarct. 5. Moderately reduced LV systolic function. EF 39%. 6. Akinesis of the mid to distal anterior, mid to distal inferior, and apical wall segments. Otherwise global hypokinesis. 7. Indeterminate Lexiscan ECG. Other Testing Pacemaker Interrogation 05/21/20 Model: Medtronic Implantation date: 04/22/18 Battery/Longevity: 3 yrs Mode: DDDR
--- NOTE | 2020-05-25 14:17 | XRay Report ---
XR chest Pre-admission PA/Lat CLINICAL HISTORY: Preoperative chest COMPARISON STUDY: 03/25/2018 FINDINGS: The heart is the upper limits of normal in size. There are postsurgical changes of midline sternotomy. There is a left subclavian pacer/defibrillator. There is a small right pleural effusion t race left pleural effusion. There is no current evidence of failure. There is no evidence of focal pu lmonary consolidation. There is ankylosis of the dorsal spine.[ IMPRESSION: 1. Small right pleural effusion and trace left pleural effusion 2. No current evidence of failure 3. No evidence of focal pulmonary consolidation ACT 112: Negative or not required by law. Electronically signed by: Hugo Solomon M.D. 05/25/2020 2:15 PM
[2020-05-25 15:46] LABS: Basophils # (auto) 0.03 K/uL (0-0.2); Basophils % (auto) 0.5 %; Eosinophils # (auto) 0.16 K/uL (0-0.5); Eosinophils % (auto) 2.4 %; Hematocrit (blood only) 37.9 % (42-52); Hemoglobin 12.1 g/dL (14.0-18.0); Immature Granulocytes # (auto) 0.01 K/uL (0.00-0.02); Immature Granulocytes % (auto) 0.2 %; Lymphocytes # (auto) 0.95 K/uL (1.2-3.4); Lymphocytes % (auto) 14.5 %; Mean Corpuscular Hgb Conc 31.9 g/dL (32-36); Mean Corpuscular Volume 93.8 fL (80-100); Mean Platelet Volume 10.3 fL (7.4-10.4); Monocytes # (auto) 0.83 K/uL (0.11-0.59); Monocytes % (auto) 12.7 %; Neutrophils # (auto) 4.58 K/uL (1.4-6.5); Neutrophils % (auto) 69.7 %; Platelet Count 204 K/uL (130-400); RDW Coefficient of Variation 13.9 % (11.5-14.5); RDW Standard Deviation 47.6 fL (36.4-46.3); Red Blood Count 4.04 M/uL (4.7-6.1); White Blood Count 6.56 K/uL (4.8-10.8)
[2020-05-25 15:59] LABS: BUN Creatinine Ratio 21.3 (10-20); Calcium 9.2 mg/dl (8.5-10.1); Creatinine Clr Calc Pharmacy 43.5 ml/min; Est GFR (African American) 61.8; Est GFR (Non-African American) 53.4; Potassium 5.2 mmol/L (3.5-5.1)
[2020-05-25 16:01] LABS: INR 1.1 (0.9-1.1); Partial Thromboplastin Ratio 1.1; Partial Thromboplastin Time 29.7 Seconds (21.0-31.0); Prothrombin Time 11.1 Seconds (9.0-12.0)
--- NOTE | 2020-05-27 04:48 | Electrocardiogram Report ---
Test Reason : Blood Pressure : / mmHG Vent. Rate : 069 BPM Atrial Rate : 071 BPM P-R Int : 000 ms QRS Dur : 162 ms QT Int : 456 ms P-R-T Axes : 000 171 060 degrees QTc Int : 488 ms Ventricular-paced rhythm Abnormal ECG When compared with ECG of 22-APR-2018 14:06, Vent. rate has increased BY 9 BPM Confirmed by Shay Alba ([id number]) on 05/27/2020 4:48:08 AM Referred By: Abdifatah Pugh Confirmed By:Shay Alba
--- NOTE | 2020-06-16 20:30 | History and Physical Report ---
DATE OF ADMISSION: 06/22/2020 CHIEF COMPLAINT: Persistent progressive left knee pain and discomfort. HISTORY OF PRESENT ILLNESS: The patient is an 84-year-old gentleman with multiple medical comorbidities who presents for surgical treatment of his left knee. He has got a long history of multiple joint problems, which have become more debilitating over time and started to really limit his activities. He has difficulty maintaining any degree of active lifestyle. He describes bilateral knee pain and discomfort, left side greater than the right. He has pain with any type of standing or walking for any extended period of time more than about 5 minutes. His walking tolerance is about a couple of blocks at best. He has got chronic back pain as well and thigh discomfort. We have injected his knees in the past and this helped him for about a day or two and that is it. He would now like to proceed with a left knee replacement. PAST MEDICAL HISTORY: Significant for: 1. Chronic atrial fibrillation and cardiomyopathy, on Eliquis. 2. History of DVT and PE in the past, currently on Eliquis. This was back in 1985. 3. Gastroesophageal reflux disease. 4. Coronary artery disease, status post bypass grafting at [facility] in 1996. 5. Hypertension. 6. Elevated cholesterol. 7. Chronic kidney disease. PAST SURGICAL HISTORY: Includes: 1. Right hip replacement done by Dr. Caro. 2. Pacemaker placement. 3. Coronary artery bypass grafting done at [facility] in 1996. ALLERGIES: None. CURRENT MEDICINES: Include: 1. Eliquis. 2. Aspirin. 3. Carvedilol. 4. Atorvastatin. 5. Furosemide. 6. Glucosamine. 7. Clotrimazole cream. 8. Lisinopril. 9. Lorazepam. 10. Pantoprazole. 11. Levothyroxine. 12. Vitamin B. 13. Vitamin C. 14. Vitamin D. SOCIAL HISTORY: An 84-year-old male. He is . Rare alcohol intake. Does not smoke. FAMILY HISTORY: Noncontributory. REVIEW OF SYSTEMS: Significant for underlying heart disease. He is on Eliquis. He does have this history of thrombosis in the past. There is no known clotting disorder. He is followed by Dr. Ny for his heart issues. PHYSICAL EXAMINATION: GENERAL: Shows a pleasant elderly male. Looks to be in reasonably good health. HEENT: Benign. NECK: Supple, no lymphadenopathy. LUNGS: Clear to auscultation. HEART: Has a regular rate and rhythm. ABDOMEN: Soft, nontender, nondistended. EXTREMITIES: Grossly neurovascularly intact except as follows: Examination of the left knee reveals the patient ambulates with a significant limp and antalgic gait. He uses a cane to walk. He has got varus alignment to his knee which is markedly worse with weightbearing with a varus thrust. He has got a small to moderate sized knee effusion. Range of motion about 10 degrees short of full extension to about 90 degrees of flexion. His knee is pretty stiff in flexion. There is no gross instability. No pain with hip motion. Negative straight leg raise. X-RAYS: X-rays of the left knee were reviewed. It shows advanced/severe left knee DJD. He has got complete loss of his medial joint space with destruction of his proximal medial tibia and a severe varus deformity. ASSESSMENT: An 84-year-old male with multiple medical comorbidities including coronary artery disease, cardiomyopathy, history of deep vein thrombosis/pulmonary embolism in the past, gastroesophageal reflux disease, hypertension, elevated cholesterol, chronic kidney disease with advanced bilateral knee degenerative joint disease, left side more severe than the right. It is really limiting his activities. He certainly has other issues as well as chronic spine disease and spinal stenosis. It appears his left knee is the most limiting factor. PLAN: We had a long discussion with the patient. He really wants to have his left knee replaced. We will proceed with left knee replacement. The risks and benefits of the left total knee replacement were explained to the patient including but not limited to DVT, PE, , infection, neurological injury, vascular injury, bleeding problem, pain, limited range of motion, stiffness, failure to relieve his symptoms, incomplete relief of symptoms, need for further surgery in the future, fracture, leg length inequality, nerve palsy, persistent pain. The patient understands and desires to proceed. Informed consent was obtained. We will likely have Dr. Ny follow him in the hospital to help with his fluid management. He will stop his Eliquis 3 days preop and we will start him on it postop probably at a prophylactic dose initially. We will have to be careful with any NSAIDs due to his slightly impaired renal dysfunction. He does have chronic anemia and he may need a blood transfusion. He is aware of that. He is hoping to be discharged to home using [facility] home health program.
[~2020-06-22 08:27] MED LIST changes: +ACETAMINOPHEN 500 MG TAB PO SCH; -APIX1TAB3 PO; -ASPI-319 PO; -ATOR-22 PO; -ATV/1 PO; -B-COCAP2 PO; +BUPIVACAINE 0.5 % 5 MG/1 ML PF 10ML VIAL ONE; +BUPIVACAINE LIPOSOME/PF 266 MG, BUPIVACAINE/EPINEPHRINE 50 ML, SODIUM CHLORIDE 0.9% 30 ... INFIL SCH; +BUPIVACAINE/EPINEPHRINE 0.25% 1:200,000 30 ML VIAL ONE; +CEFAZOLIN 2000MG 2,000 MG/15 ML SYR IV SCH; -CHOL1000 PO; -CRG625 PO; -DUTACAP PO; +FAMOTIDINE 20 MG TAB PO SCH; -FURO-85 PO; +GABAPENTIN 300 MG CAP PO SCH; -GLUCOSAMINE CHRON PO; -LEVO50TA PO; -LISI20TA3 PO; +LR 500ML BOLUS, THEN 15ML/HR IV SCH; +LR 60ML/HR IV SCH; +METOCLOPRAMIDE HCL 10 MG TABLET PO SCH; -OMEG10007 PO; -PRLSR20 PO; -VIT C WITH ROSE HIPS PO
--- NOTE | 2020-06-22 08:32 | History & Physical Bridge Note ---
Date of Service June 22, 2020 History & Physical Bridge Note I have examined the patient, reviewed the History & Physical and in the interval since the performance of the History & Physical I have noted the following changes of clinical significance: no changes noted
[2020-06-22] MEDS ORDERED: PROPOFOL IV EMULSION 10 MG/ML 20 ML VIAL IV ONE ×2 (08:52→12:07)
[2020-06-22] MEDS ORDERED: fentaNYL citrate 100 MCG/2 ML VIAL ONE (08:52)
[2020-06-22] MEDS ORDERED: MIDAZOLAM HCL 1 MG/ML 2ML VIAL ONE (08:52)
[2020-06-22] MEDS ORDERED: ONDANSETRON INJ 2 MG/ML 2 ML VIAL IV PRN ×2 (09:52→13:53)
[2020-06-22] MEDS ORDERED: ATROPINE SULFATE 0.1 MG/ML 10ML SYR IV PRN (09:52)
[2020-06-22] MEDS ORDERED: PROMETHAZINE HCL 12.5 MG in SODIUM CHLORIDE 0.9% 50 ML IV PRN (09:52)
[2020-06-22] MEDS ORDERED: fentaNYL citrate 100 MCG/2 ML VIAL IV PRN (09:52)
[2020-06-22] MEDS ORDERED: HYDROmorphone INJ 2 MG/ML SYR/VIAL IV PRN (09:52)
[2020-06-22] MEDS ORDERED: ePHEDrine sulfate 50 MG/ML AMP IV PRN (09:52)
[2020-06-22] MEDS ORDERED: SODIUM CHLORIDE 0.9% PF 50 ML VIAL ONE (10:32)
[2020-06-22] MEDS ORDERED: BUPIVACAINE/EPINEPHRINE 0.25% 1:200,000 30 ML VIAL ONE (10:32)
[2020-06-22] MEDS ORDERED: BACITRACIN INJ 50,000 UNIT VIAL ONE (10:32)
[2020-06-22] MEDS ORDERED: BUPIVACAINE LIPOSOME 1.3% 266 MG/20 ML VIAL ONE (10:32)
[2020-06-22] MEDS ORDERED: ePHEDrine sulfate 50 MG/ML SYR ONE (11:34)
[2020-06-22] MEDS ORDERED: PHENYLEPHRINE 100MCG/ML 5ML SYR ONE (11:34)
[2020-06-22] MEDS ORDERED: TRANEXAMIC ACID / 0.7% NACL 1,000 MG/100 ML BAG IV STA (12:19)
--- NOTE | 2020-06-22 12:49 | Post Operative Brief Note ---
PG Immediate Post Op with CF Date of Surgery June 22, 2020 Pre & Post Diagnosis Operation Date: 06/22/20 10:40 Pre-Op Diagnosis: Left Knee Degenerative Joint Disease; Knee Pain Post-Op Diagnosis: Left Knee Degenerative Joint Disease; Knee Pain I identified the patient and participated in the time-out.: Yes Procedure Operation Date: 06/22/20 10:40 Actual Procedures p Left Total Knee Arthroplasty(Left) - Abdifatah Pugh MD Surgeon Abdifatah Pugh MD [employer] [place], [facility] Estimated Blood Loss 50 Findings Consistent with Post-Op Diagnosis Fluids 600 cc Specimens Specimen Description: Permanent Specimen: A) Left Knee Bone and Tissue Drains Mendoza Catheter Anesthesia Type Spinal MAC Complications none Disposition Accompanied Patient To Recovery: No Disposition: Recovery Room
--- NOTE | 2020-06-22 13:05 | Operative Report ---
Post Operative Report Pre & Post Diagnosis Operation Date: 06/22/20 10:40 Pre-Op Diagnosis: Left Knee Degenerative Joint Disease; Knee Pain Post-Op Diagnosis: Left Knee Degenerative Joint Disease; Knee Pain I identified the patient and participated in the time-out.: Yes Procedure Operation Date: 06/22/20 10:40 Actual Procedures p Left Total Knee Arthroplasty(Left) - Abdifatah Pugh MD Surgeon Abdifatah Pugh MD Network Manager [place], PAC Estimated Blood Loss 50 Findings Consistent with Post-Op Diagnosis Operative findings revealed advanced left knee DJD with extensive grade 4 [id number] disease of the medial and patellofemoral compartments and about half of the lateral compartment. He did have a very large varus deformity to his knee with extreme tibial wear and tibiofemoral subluxation. A chronic ACL tear. He had osteophytes in all 3 compartments. Fluids 600 cc. Specimens Left knee sent for pathology. Drains None. Anesthesia Type Spinal MAC Complications none Disposition Accompanied Patient To Recovery: No Disposition: Recovery Room Indications Patient is an 84-year-old gentleman said a long history of bilateral knee pain discomfort describes a just gotten worse over time patient developed progressive deformities. Knee is been through extensive conservative care which really did not have any real effect on his pain any longer. X-rays show advanced bilateral knee DJD. He had severe deformities left side worse than right. He elected proceed with left total knee arthroplasty. Of note, patient was medically optimized for surgery. Description of Procedure Operative implants consist of: 1. Biomet Vanguard size 67.5 left posterior stabilized femoral component. 2. Biomet size 75 tibial tray with a 15 x 80 mm offset stem with a 5 mm offset and a small cruciate wing. 3. 10 mm posterior stabilized polyethylene insert. 4. 31 x 8 all poly-patella. The patient was taken the operating identified and placed on the operating table supine position protectors were properly padded. IV antibiotics arrived by anesthesia team. A spinal anesthetic and abductor canal block had provided in the holding area. Mendoza catheter was placed in sterile fashion. Left thigh turn was then placed in left lower extremities and prepped and draped in usual sterile fashion. The left leg was elevated exsanguinated with use of an Esmarch and turns placed at 300 mmHg. An anterior approach to the left knee was then performed through a longitudinal incision centered over the patella. Sharp dissection was got through subcutaneous tissue down the extensor mechanism. A medial parapatellar arthrotomy incision was made. Subperiosteal dissection was carried out medially. I did an extensive release medial and posterior medially due to his varus deformity with a flexion contracture. The fat pad was resected beneath patella tendon. Lateral patellofemoral ligament was released and the patella was subluxated laterally. The knee was flexed. The osteophytes were taken off the distal femur. The ACL was absent. The PCL was released from the distal femur the tibia subluxate anteriorly. I then used a saw to resect the tibial eminence. I then reamed out the tibial canal up to 15. We used a 15 reamer to do an IM cut. I cut the tibia to take 10 mm off the most prominent lateral tibial plateau. We then prepared the tibia for a 15 x 80 mm offset stem with a 5 mm offset and a small cruciate wing. The trial implant was assembled and placed and fit nicely. Attention drawn the femur. The distal femur was then with a sharp drill. Intramedullary canal was suction. A left 6 degree valgus cutting guide was placed. Distal femoral cutting block was pinned in place. This femoral cut was made taking additional 3 mm bone off distal femur. The femur was then sized to a size 67.5. The AP cutting block wa s pinned parallel to the epicondylar axis which was 5 degrees of external rotation. The anterior cut, anterior chamfer, posterior cut, posterior chamfer cuts were made. Box cutting guide was placed in just slight lateral and the box cut was made. The knee was flexed. The remnants of medial lateral menisci were excised. The osteophytes were taken off the posterior aspect the femur. Trial femoral component was placed. The tibia has already been assembled in place. I then trialed the knee and the 10 mm insert was used but it was still tight in both flexion extension. Therefore I remove the tibial tray and use the IM guide to cut an additional 4 mm off the proximal tibia. We used the same implant. I did re-punch the tibia and drilled a little bit deeper. The implant was placed and fit nicely. At this point the 10 mm insert was placed and fit nicely. Was a little bit lax laterally but I elected to accept this. Attention drawn the patella. The patella was cleaned of all soft tissues. Patella thickness measured 23 mm in thickness was cut down to 14. Was sized to a size 31 patella. Locals were drilled for 31 patella. Lateral osteophyte is moved. Patella button was plac ed. Knee was taken through range of motion patella tracked nicely with no thumbs test. Attention drawn to placing permanent components. All trial components were removed. The wound was irrigated with copious ounce of pulsatile lavage solution. A bone plug was placed in the disc femur limit blood loss. A double batch Palacos G cement was mixed. A Biomet Vanguard size 67.5 left posterior stabilized femoral component, a size 75 tibial tray with a 15 x 80 mm offset stem with a 5 mm offset and a small cruciate wing was impacted in position cementing of the metaphysis and the upper half of the stem only. I then cemented in the 31 x 8 all poly-patella. Knee was brought out into full extension total cement hardened. Final cement check was then performed. Pericapsular tissues were injected with total 100 cc of combination of 20 of Exparel, 30 cc normal saline, 50 cc of quarter percent Marcaine with epinephrine. Patient did receive 1 g tranexamic acid. The tourniquet was then let down for final turn time 35 minutes. Hemostasis assured use electrocautery. The extensor mechanism closed with combination 1 PDS suture #1 Vicryl suture in [id number]-[id number] fashion. Extensor mechanism checked found to be intact the subcutaneous tissue then closed with 2 Dexon suture in a buried interrupted fashion the skin was closed skin margo. Leg was then cleaned dried a sterile dressed composed Xeroform, 4 x 4's, sterile ABD pad and sterile cast padding, Ra bandage were applied. Patient then transferred to the recovery room in stable condition. Patient tolerated the procedure well and there were no complications. Hemal Golden, my physician assistant press operator, was present for the entire procedure. His assistance was essential and required for proper patient positioning, prepping and draping, surgical exposure, performing the technical details the operation, placement the implants, closure of the wound, placement of the sterile dressing. I attest to the content of the Intraoperative Record and any orders documented therein. Any exceptions are noted below.
--- NOTE | 2020-06-22 13:35 | XRay Report ---
LEFT KNEE 2 VIEWS History: Left total knee arthroplasty. Degenerative arthritis. Postop. FINDINGS: The patient is status post a left total knee arthroplasty. The hardware is intact. No fract ure or dislocation. Skin margo are in place. IMPRESSION: Left total knee arthroplasty. No evidence for hardware complication. ACT 112: Negative or not required by law. Electronically signed by: Jose Ramon Shirley M.D. 06/22/2020 1:34 PM
--- NOTE | 2020-06-22 13:37 | Anesthesiology Progress Note ---
Date of Service June 22, 2020 Anesthesia Post Procedure Vital Signs Vital Signs: Temp Pulse Pulse Resp BP BP Pulse Ox 06/22/20 13:25 62 16 154/51 H 98 06/22/20 13:15 36.5 C 63 16 141/87 H 98 06/22/20 13:05 62 16 135/70 98 06/22/20 12:55 36.0 C L 61 16 110/64 96 06/22/20 09:17 36.6 C 75 18 164/94 H 99 Pain Intensity Left Knee: Pain Intensity: 6 Transfer of Care Handoff Completed per policy Notes Mental Status: alert / awake / arousable and participated in evaluation Patient Amnestic to Procedure: Yes Nausea / Vomiting: adequately controlled Pain: adequately controlled Airway Patency, RR, SpO2: stable & adequate BP & HR: stable & adequate Hydration State: stable & adequate Anesthetic Complications: no major complications apparent and Pt Satisfied with anesthetic care
[2020-06-22] MEDS ORDERED: METOCLOPRAMIDE HCL INJ 5 MG/ML 2 ML VIAL IV PRN (13:53)
[2020-06-22] MEDS ORDERED: MAGNESIUM HYDROXIDE SUSP 30 ML UDC PO PRN (13:53)
[2020-06-22] MEDS ORDERED: TAMSULOSIN HCL 0.4 MG CAP PO PRN (13:53)
[2020-06-22] MEDS ORDERED: ALUMINUM/MAGNESIUM SUSP 30 ML UDC PO PRN (13:53)
[2020-06-22] MEDS ORDERED: bisacodyL 10 MG SUPP PR PRN (13:53)
[2020-06-22] MEDS ORDERED: HYDROmorphone INJ 0.5 MG/0.5 ML SYR IV PRN (13:53)
[2020-06-22] MEDS ORDERED: NALOXONE HCL 0.4 MG/1 ML VIAL/CARP IV PRN (13:53)
[2020-06-22] MEDS ORDERED: TRAMADOL HCL 50 MG TABLET PO PRN (13:53)
[2020-06-22] MEDS: SODIUM CHLORIDE 0.9% 1000ML 1,000 ML IV SCH ×2 (14:49→22:27)
[2020-06-22] MEDS: KETOROLAC TROMETHAMINE 15 MG/ML VIAL IV SCH ×2 (16:12→22:24)
[2020-06-22] MEDS: ACETAMINOPHEN 500 MG TAB PO SCH ×2 (16:16→22:24)
--- NOTE | 2020-06-22 16:57 | Consultation ---
Date of Consultation June 22, 2020 Assessment & Plan (1) Status post total left knee replacement: per Dr Pugh. DVT proph - eliquis. 2.5mg BID ordered, but patient was taking 5mg BID pre-op. Still meets criteria for 5mg dosing despite his age (Cr is <1.5, body weight is >60kg). Will need to d/w primary orthopedic service tomorrow. Pain control per ortho. Recommend judicious use of IVF as EF is low-normal at 50-55%. (2) CAD, multiple vessel: s/p CABG 1996 - [facility]. echo and nuclear stress test 09/2019. both acceptable at that time. Cont asa, statin, beta sahra. No ischemic symptoms post-op. (3) Valvular heart disease: , MR, TR - as noted on echo 09/2019. Stable. (4) Paroxysmal atrial fibrillation: noted. Examines in NSR during my assessment. see discussion above re: eliquis. Cont beta sahra. (5) Ischemic cardiomyopathy: EF 50-55%. apex with akinesis on echo 09/2019. (6) Chronic kidney disease, stage III (moderate): baseline CrCl 30s/40s repeat BMP am for stability (7) BPH with obstruction/lower urinary tract symptoms: cont dutasteride-flomax combo pill he brought from home -- will order non formulary (8) Biventricular ICD (implantable cardioverter-defibrillator) in place: noted paced on pre-op EKG (9) Anticoagulant long-term use: eliquis see above (10) Hypothyroidism: TSH wnl on 01/2020 cont synthroid (11) Impaired fasting glucose: most recent a1c 5.7% very stable (12) Mixed hyperlipidemia: statin (13) HTN (hypertension): hold ARB until BMP results are known tomorrow am if Cr is stable then resume History of Present Illness Requesting Physician: Abdifatah Pugh MD Reason for Consultation: post-operative medical management Attending Physician: Abdifatah Pugh MD History of Present Illness Very pleasant 84yo male with CKD stage 3, pacemaker status, a.fib on eliquis, CAD s/p CABG 1996, HTN, hypothyroidism, and prior DVT/PE who presented today for elective left TKR. I saw him post-op on the orthopedic floor. He was surrounded by his and daughter. He was resting comfortably without any knee pain. Denied any chest pain, dyspnea, nausea, emesis, or abdominal pain. Prior to the surgery he had been feeling well of late. 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 No recent fevers, loss of taste/smell, sore throat, voiding difficulties, or loss of appetite. He anticipates going home at discharge with home therapy. Allergies Allergy/AdvReac Type Severity Reaction Status Date / Time simvastatin Allergy Intermediate LEG CRAMPS Verified 06/22/20 08:59 Home Medications Home Medications Medication Instructions Recorded Confirmed Type ascorbic acid (vitamin C) 500 mg 500 mg PO QAM 07/23/19 06/22/20 History tablet cholecalciferol (vitamin D3) 25 1,000 units PO QAM 07/23/19 06/22/20 History mcg (1,000 unit) capsule aspirin 81 mg tablet,delayed 81 mg PO Q2D tab 09/22/19 06/22/20 History release amoxicillin 2,000 mg PO UD PRN 12/05/19 06/22/20 History atorvastatin 40 mg PO HS 12/05/19 06/22/20 History clotrimazole-betamethasone 1 appln TOP UD PRN 12/05/19 06/22/20 History dutasteride-tamsulosin 1 cap PO HS 12/05/19 06/22/20 History glucosamine sulfate 1,000 mg PO BID 12/05/19 06/22/20 History levothyroxine 75 mcg PO QAM 12/05/19 06/22/20 History losartan [Cozaar] 100 mg PO QPM 12/05/19 06/22/20 History vitamin B complex 1 cap PO QAM 12/05/19 06/22/20 History pantoprazole 40 mg tablet,delayed 40 mg PO QAM #90 tab 02/21/20 06/22/20 Rx release carvedilol 25 mg tablet 25 mg PO BID #180 tab 04/18/20 06/22/20 Rx Eliquis 5 mg PO BID 05/24/20 06/22/20 History Wheeled Walker #1 ea 06/11/20 Rx Patient History Medical History Anticoagulant long-term use Atrial fibrillation DX 2 YR AGO, NO HX CARDIOVERSION FOLLOW WITH DR PALOMINO Bilateral primary osteoarthritis of knee Biventricular ICD (implantable cardioverter-defibrillator) in place MOST RECENT CHECK: 05/21/20 PACEMAKER/ICD COMBO - [employer] BPH w urinary obs/LUTS Cardiomyopathy CHB (complete heart block) Chronic kidney disease with symptom management only, stage 3 (moderate) History of pilonidal cyst HTN (hypertension) Hx of venous thrombosis and embolism HX OF 1984 AND PT REPORTS HAS HAD BLOOD CLOT IN LEFT LEG FOR YRS Hx pulmonary embolism 1984 Hyperlipidemia Hypothyroidism Spinal stenosis Surgical History History of anesthesia reaction AFTER HEART SURGERY COULDN'T BE STILL BECAME VERY NERVOUS History of cholecystectomy History of coronary artery bypass graft 1986 [facility] - X 3 History of cystoscopy History of esophagogastroduodenoscopy (EGD) History of hip replacement RIGHT History of liver biopsy Family History Brother , AGE 63 Diabetes Myocardial infarction Father , AGE 65 Diabetes Heart disease Mother , AGE 84 Myocardial infarction Other COPD (chronic obstructive pulmonary disease) Cardiomyopathy Hypertension Ovarian cancer Skin cancer (melanoma) Stroke Tuberculosis Social History (Updated 06/22/20 @ 20:33 by Silvio Jackson) Smoking Status: Never smoker Second Hand Exposure: No; Do You Dip or Chew Tobacco: No (remote history, quit 1984); Tobacco Cessation Education Requested by Patient: No Hx Alcohol Use: No Hx Substance Use: No Preferred Language: Syrian Communication Ability: Effective Visual Impairment: No Limitations Hearing Ability: Use of Hearing Aid Senior Sales Consultant Required: No Beliefs That Will Affect Care: None marital status: Current Living Situation: Spouse current occupational status: employed and retired current occupation: [employer] How many Children do You have: 3 Other Information That Helps Us Care for You: No Feels Safe at Home: Yes Safety Concerns: Feels Safe At This Time Childhood Exposure to Second-Hand Smoke: Yes Dental Care, Regularly: Yes Physical Activity Frequency: Does not Exercise Seatbelt Use: always Sunscreen Use: No Assistive Devices: Glasses and Hearing Aid - Bilateral Review of Systems Constitutional: no fever, no chills, no fatigue and no anorexia Ear, Nose, Mouth, Throat: no sore throat and no dysphagia no loss of taste or smell Respiratory: no cough, no dyspnea and no dyspnea on exertion Cardiovascular: no chest pain Gastrointestinal: no abdominal pain, no nausea and no vomiting Genitourinary: no difficulty urinating Musculoskeletal: + joint pain (knees b/l ) Integumentary: no rash Neurologic: no localized weakness and no generalized weakness Endocrine: denies diabetes Hematologic / Lymphatic: no easy bleeding Physical Exam Constitutional: well developed and well nourished; no acute distress and no altered mental status Eyes: PERRL ENMT: external ear and nose normal, oropharynx normal Neck: trachea midline, no thyromegaly Respiratory: normal respiratory effort, lungs clear to auscultation Cardiovascular: Rate/Rhythm: regular rate and regular rhythm Heart Sounds: normal S1, normal S2 and + murmur (2/6 LLSB, systolic ) Vessels: + JVD (mild ), posterior tibial pulses present and dorsalis pedis pulses present Extremities: no edema Gastrointestinal (Abdomen): normal bowel sounds, soft, nontender, no hepatosplenomegaly Musculoskeletal: left knee dressings intact, ice pack in place Skin: no rashes, warm and dry Neurologic: deep tendon reflexes 2+ bilaterally (arms ) and moves all extremities; no focal motor deficits Psychiatric: A+Ox3, euthymic affect Lymphatic: no cervical lymphadenopathy Results & Data ([facility]) Vital Signs (Past 12 Hours) Vital Signs Temp Pulse Pulse Resp BP BP Pulse Ox 06/22/20 16:55 36.3 C L 62 14 98 06/22/20 16:52 36.3 C L 14 164/87 H 06/22/20 15:45 36.2 C L 60 15 121/74 99 06/22/20 14:45 36.5 C 59 L 18 138/88 95 06/22/20 14:28 36.4 C L 62 16 145/85 H 98 06/22/20 13:45 36.4 C L 64 16 114/71 100 06/22/20 13:25 62 16 154/51 H 98 06/22/20 13:15 36.5 C 63 16 141/87 H 98 06/22/20 13:05 62 16 135/70 98 06/22/20 12:55 36.0 C L 61 16 110/64 96 06/22/20 09:17 36.6 C 75 18 164/94 H 99 Laboratory Results echo 09/2019 - EF 50-55%; akinesis of apex; mild right ventricular systolic dysfunction; pulmonary HTN; mild ; mod MR; mod TR. lexiscan nuclear stress test 09/2019 - low risk for ischemia. EKG - 05/2020 - paced rhythm. baseline Cr Clearance - 30s/40s PG Care Time/CCT Total # of Minutes Spent Total Time Spent with Patient: Total time spent is greater than 50% in coordination of care (as documented) at patient's floor/unit and/or counseling patient: Coding Level of Care Code 48136 Subseq Hosp Care Lvl 3 Diagnoses Status post total left knee replacement Z96.652 CAD, multiple vessel I25.10 Valvular heart disease I38 Paroxysmal atrial fibrillation I48.0 Ischemic cardiomyopathy I25.5 Chronic kidney disease, stage III (moderate) N18.3 BPH with obstruction/lower urinary tract symptoms N40.1; N13.8 Biventricular ICD (implantable cardioverter-defibrillator) in place Z95.810 Anticoagulant long-term use Z79.01 Hypothyroidism E03.9 Impaired fasting glucose R73.01 Mixed hyperlipidemia E78.2 HTN (hypertension) I10 Hypertension type: essential hypertension (1) HTN (hypertension) Hypertension type: essential hypertension Qualified Code(s): I10 - Essential (primary) hypertension
[2020-06-22] MEDS: FERROUS GLUCONATE 324 MG TAB PO SCH (18:25)
[2020-06-22] MEDS: CEFAZOLIN 1000MG 1,000 MG/7.5 ML SYR IV SCH (18:25)
[2020-06-22] MEDS ORDERED: LOSARTAN POTASSIUM 50 MG TAB PO SCH (21:00)
[2020-06-22] MEDS ORDERED: NON-FORMULARY PATIENT'S OWN MED SCH (21:00)
[2020-06-22] MEDS: SENNA 8.6 MG TAB PO SCH (21:01)
[2020-06-22] MEDS: ASPIRIN 81 MG ECTAB PO SCH (21:01)
[2020-06-22] MEDS: TAMSULOSIN HCL PO SCH (21:01)
[2020-06-22] MEDS: DOCUSATE SODIUM 100 MG CAP PO SCH (21:01)
[2020-06-22] MEDS: DUTASTERIDE PO SCH (21:01)
[2020-06-22] MEDS: ATORVASTATIN 40 MG TAB PO SCH (21:02)
[2020-06-22] MEDS: carvediloL 25 MG TAB PO SCH (21:02)
[2020-06-23] MEDS: CEFAZOLIN 1000MG 1,000 MG/7.5 ML SYR IV SCH (02:58)
[2020-06-23] MEDS: KETOROLAC TROMETHAMINE 15 MG/ML VIAL IV SCH ×2 (02:59→11:02)
[2020-06-23] MEDS: LEVOTHYROXINE SODIUM 75 MCG TABLET PO SCH (05:43)
[2020-06-23] MEDS: ACETAMINOPHEN 500 MG TAB PO SCH ×3 (05:43→21:23)
[2020-06-23 06:21] LABS: Hematocrit (blood only) 30.3 % (42-52); Hemoglobin 9.8 g/dL (14.0-18.0); Mean Corpuscular Hemoglobin 29.5 pg (25-34); Mean Corpuscular Hgb Conc 32.3 g/dL (32-36); Mean Corpuscular Volume 91.3 fL (80-100); Mean Platelet Volume 9.9 fL (7.4-10.4); Platelet Count 130 K/uL (130-400); RDW Coefficient of Variation 13.8 % (11.5-14.5); RDW Standard Deviation 45.3 fL (36.4-46.3); Red Blood Count 3.32 M/uL (4.7-6.1); White Blood Count 6.49 K/uL (4.8-10.8)
[2020-06-23 06:46] LABS: BUN Creatinine Ratio 23.3 (10-20); Calcium 8.6 mg/dl (8.5-10.1); Creatinine Clr Calc Pharmacy 41.7 ml/min; Est GFR (African American) 61.2; Est GFR (Non-African American) 52.8; Magnesium 1.9 mg/dl (1.8-2.4); Potassium 4.5 mmol/L (3.5-5.1)
[2020-06-23] MEDS: MULTIVITAMIN TAB PO SCH (08:38)
[2020-06-23] MEDS: DOCUSATE SODIUM 100 MG CAP PO SCH ×2 (08:38→20:34)
[2020-06-23] MEDS: PANTOprazole 40 MG TAB PO SCH (08:38)
[2020-06-23] MEDS: carvediloL 25 MG TAB PO SCH ×2 (08:38→20:34)
[2020-06-23] MEDS: FERROUS GLUCONATE 324 MG TAB PO SCH ×2 (08:38→17:28)
[2020-06-23] MEDS: ASCORBIC ACID 500 MG TAB PO SCH (08:39)
[2020-06-23] MEDS: CHOLECALCIFEROL 1,000 UNITS 25 MCG TAB PO SCH (08:39)
[2020-06-23] MEDS: VITAMIN B COMPLEX TAB PO SCH (08:39)
--- NOTE | 2020-06-23 09:04 | Progress Notes ---
DATE: 06/23/2020 SUBJECTIVE: An 84-year-old gentleman postop day 1 from a left knee replacement. He is doing quite well. He denies any significant pain. No chest pain or shortness of breath. Not feeling dizzy or lightheaded. OBJECTIVE: VITAL SIGNS: Temperature 36.4. Vital signs stable. GENERAL: Shows a pleasant elderly male. He is lying in bed. Seems fairly awake and alert and appropriate this morning. EXTREMITIES: Examination of the left leg reveals the leg to be well aligned. Dressing is intact. No drainage. He can dorsiflex and plantarflex his foot appropriately. He can do a good straight leg raise. LABORATORY DATA: Hemoglobin 9.8. Hematocrit 30.3. Electrolytes are stable. ASSESSMENT: An 84-year-old gentleman postop day 1 from left knee replacement, doing pretty well. He has multiple medical comorbidities, but seems to be medically stable. PLAN: 1. DVT prophylaxis including thigh-high TEDs, SCDs, and put him back on Eliquis at a prophylactic dose currently. We will discharge on a full dose. 2. PT/OT. Weight bear as tolerated. Left total knee protocol. 3. Pain control, doing well with current pain regimen. We really need to limit narcotics to avoid confusion. 4. Medical management as per the medicine service. 5. Disposition: He is planning to be discharged home with some home health. I would like to keep the patient today, he has got multiple medical comorbidities and high risk for complications. We will see how things go over the next 24 hours, but hopefully, send him home with home health likely tomorrow.
[2020-06-23] MEDS: APIXABAN 2.5 MG TAB PO SCH ×3 (13:16→21:24)
--- NOTE | 2020-06-23 13:54 | Hospitalist Progress Note ---
Date of Service June 23, 2020 Assessment & Plan (1) Status post total left knee replacement: DVT proph - per primary, patient will resume full dosing at discharge, currently receiving 2.5 mg bid while inpatient Pain control per ortho. Recommend judicious use of IVF as EF is low-normal at 50-55%. (2) CAD, multiple vessel: s/p CABG 1996 - [facility] [place]. echo and nuclear stress test 09/2019. both acceptable at that time. Cont asa, statin, beta sahra. No ischemic symptoms post-op. (3) Valvular heart disease: , MR, TR - as noted on echo 09/2019. Stable. (4) Paroxysmal atrial fibrillation: noted. Continue beta sahra, Eliquis (5) Ischemic cardiomyopathy: EF 50-55%. apex with akinesis on echo 09/2019. (6) Chronic kidney disease, stage III (moderate): baseline CrCl 30s/40s Kidney function stable (7) BPH with obstruction/lower urinary tract symptoms: cont dutasteride-flomax combo pill he brought from home -- will order non formulary (8) Biventricular ICD (implantable cardioverter-defibrillator) in place: noted paced on pre-op EKG (9) Anticoagulant long-term use: eliquis see above (10) Hypothyroidism: TSH wnl on 01/2020 cont synthroid (11) Impaired fasting glucose: most recent a1c 5.7% very stable (12) Mixed hyperlipidemia: statin (13) HTN (hypertension): Resume ARB, bmp stable (14) Acute blood loss anemia: Hgb 9.8 down from 12.1 pre op Continue to monitor Thank you for involving us in the care of this patient, medicine will sign off at this time, please call with any questions or concerns Admission and Anticipated Discharge Date Admission Date: June 22, 2020 Subjective Mr. Figueroa feels well, no complaints ROS Constitutional: no chills, aches, sweats or fever Respiratory: no sob,cough, sputum, or wheezing Cardiac: no chest pain, palpitations, edema, orthopnea or lightheadedness GI: no abdominal pain, nausea, vomiting, diarrhea or constipation : no dysuria or hesitancy Extremities: no joint pain or weakness Skin: no rash All other systems reviewed and negative Physical Exam Physical Exam: General: no distress Eyes: normal inspection, PERLL Respiratory: chest non tender, clear to auscultation, normal breath sounds, no respiratory distress, no accessory muscle use Cardiac: regular rate and rhythm, no rub or gallop, no murmur, no edema, no jvd GI/: active bowel sounds, no abd pain or tenderness, soft, non distended Extremities: normal range of motion, normal strength, non tender Neuro/Psych: alert and oriented x 3, normal mood and affect Skin: normal color, dry Results & Data Results & Data ([facility]) Vital Signs (Past 12 Hours) Vital Signs Temp Pulse Resp BP Pulse Ox 06/23/20 07:30 36.4 C L 65 16 136/65 98 06/23/20 03:46 36.8 C 68 16 138/72 98 PG Care Time/CCT Total # of Minutes Spent Total Time Spent with Patient: Total time spent is greater than 50% in coordination of care (as documented) at patient's floor/unit and/or counseling patient: Coding Level of Care Code 23138 Subseq Hosp Care Lvl 2 Diagnoses Status post total left knee replacement Z96.652 CAD, multiple vessel I25.10 Valvular heart disease I38 Paroxysmal atrial fibrillation I48.0 Ischemic cardiomyopathy I25.5 Chronic kidney disease, stage III (moderate) N18.3 BPH with obstruction/lower urinary tract symptoms N40.1; N13.8 Biventricular ICD (implantable cardioverter-defibrillator) in place Z95.810 Anticoagulant long-term use Z79.01 Hypothyroidism E03.9 Impaired fasting glucose R73.01 Mixed hyperlipidemia E78.2 HTN (hypertension) I10 Hypertension type: essential hypertension Acute blood loss anemia D62 (1) HTN (hypertension) Hypertension type: essential hypertension Qualified Code(s): I10 - Essential (primary) hypertension
[2020-06-23] MEDS: SENNA 8.6 MG TAB PO SCH (20:34)
[2020-06-23] MEDS: DUTASTERIDE PO SCH (20:34)
[2020-06-23] MEDS: TAMSULOSIN HCL PO SCH (20:34)
[2020-06-23] MEDS: ATORVASTATIN 40 MG TAB PO SCH (20:34)
[2020-06-24] MEDS: ACETAMINOPHEN 500 MG TAB PO SCH (05:17)
[2020-06-24] MEDS: LEVOTHYROXINE SODIUM 75 MCG TABLET PO SCH (05:17)
[2020-06-24] MEDS: FERROUS GLUCONATE 324 MG TAB PO SCH (07:40)
[2020-06-24] MEDS: DOCUSATE SODIUM 100 MG CAP PO SCH (07:41)
[2020-06-24] MEDS: carvediloL 25 MG TAB PO SCH (07:41)
[2020-06-24] MEDS: ASPIRIN 81 MG ECTAB PO SCH (07:42)
[2020-06-24] MEDS: APIXABAN 2.5 MG TAB PO SCH (07:42)
[2020-06-24] MEDS: MULTIVITAMIN TAB PO SCH (07:42)
[2020-06-24] MEDS: ASCORBIC ACID 500 MG TAB PO SCH (07:43)
[2020-06-24] MEDS: VITAMIN B COMPLEX TAB PO SCH (07:43)
[2020-06-24] MEDS: PANTOprazole 40 MG TAB PO SCH (07:43)
[2020-06-24] MEDS: CHOLECALCIFEROL 1,000 UNITS 25 MCG TAB PO SCH (07:43)
--- NOTE | 2020-06-24 08:48 | Progress Notes ---
DATE: 06/24/2020 SUBJECTIVE: An 84-year-old gentleman postop day 2 from left knee replacement. He is doing pretty well. The knee is a little bit more sore today. No chest pain or shortness of breath. Not feeling dizzy or lightheaded. OBJECTIVE: VITAL SIGNS: Temperature 36.5. Vital signs stable. GENERAL: Shows a pleasant elderly male. He is sitting up in his bedside chair and looks quite comfortable. EXTREMITIES: Examination of the left leg reveals the dressing to be clean, dry and intact. Calf is soft and supple. He can dorsiflex and plantarflex his foot appropriately. He is neurologically intact. ASSESSMENT: An 84-year-old gentleman postoperative day 2 from left knee replacement, doing quite well. He looks quite well this morning. He is having a bit more pain, which is not unexpected. PLAN: 1. DVT prophylaxis including thigh-high TEDs, SCDs, and he is back on his Eliquis. He is currently on a prophylactic dose and will be discharged on a therapeutic dose. 2. PT/OT. Weight bear as tolerated. Left total knee protocol. 3. Pain control, doing well with current pain regimen. 4. Disposition: Plan to discharge to home with some home health later today.
--- NOTE | 2020-06-26 14:35 | Discharge Summary ---
Date of Service June 26, 2020 Admission HPI Per Admitting Provider Documented in the H & P Admission Exam (Per Admitting) Constitutional Documented in the H & P Discharge Data Consultations 06/22/20 13:53 Consult Case Management - Discharge Planning Routine Consult Hospitalist Routine Procedures Performed Operation Date: 06/22/20 10:40 Actual Procedures p Left Total Knee Arthroplasty(Left) - Abdifatah Pugh MD Hospital Course (1) Status post total left knee replacement: This patient is a 84 year old male admitted on 06/22/20 and underwent total knee arthroplasty. He tolerated the procedure well and there were no complications. Transferred to the PACU post op and later to the orthopedic floor for further care. He was given ancef for antibiotic prophylaxis. He was also given MARIA TERESA stockings, SCDs, and eliquis for DVT prophylaxis. Hemoglobin, hematocrit, and vital signs were monitored during his hospital stay and remained stable. Did not require any blood transfusions. There were no complications during his hospital stay. The hospitalist service was consulted for medical management and followed him through out his hospital stay. By post op day #2 the patient was tolerating a heart healthy diet, pain was reasonably controlled with oral pain medicine, and he was participating in physical therapy. On post op day #2 the patient was discharged home and set up with home health care. He was given printed discharge instructions including prescriptions for extra strength tylenol, ferrous gluconate, and tramadol. Continue physical therapy, weight bearing as tolerated. Continue MARIA TERESA stockings. Follow up approximately 2 weeks post op or sooner if there are problems or concerns. Coding Level of Care Code None Diagnoses Status post total left knee replacement Z96.652
== END 2020-06-24 10:30 | disposition home health service (06) ==
LOC: 3E 08:27 → ASU 08:27

== ENCOUNTER 2020-12-24 07:42 | Observation (INO) ==
--- NOTE | 2020-12-18 15:26 | Anesthesiology Consultation ---
Date of Service December 18, 2020 Assessment & Plan (1) Encounter for pre-operative examination: COVID Status: As of 12/18 PAT welfare aide, patient denies travel to endemic area, known exposure/sick contacts, or CURRENT symptoms of COVID19. Patient was Covid positive on 10/16/2020. His symptoms were low-grade fever and body aches. Preoperative COVID19 testing completed on 12/18 at [facility], results pending. Patient last seen by cardiology 04/26/20 for clearance prior to R TKA, and for EP visit on 05/21/20. Per Georges Mills 04/26/20: "He is still active on a daily basis, and still works -- although he has been limited because of his advanced osteoarthritis of his left knee. Patient is able to climb up 2 flights of stairs without limiting cardiopulmonary symptoms although he goes up the steps slowly because of his knee pain. He does have chronic stable dyspnea on exertion if he walks too far or if he walks on an uneven surface -- and typically that exertional dyspnea is in direct proportion to how much his knee hurts...patient is a low to intermedia te cardiac risk for his upcoming elective joint replacement." PATIENT GOES BY 'LES' OR LITO. Chart Review Chart Review: Acceptable Risk for Surgery and Patient NOT seen in Pre Admission Testing Consults Requested none ASA ASA4 Proposed Anesthesia Anesthesia Type: General Risk / Benefits Reviewed With: PT / POA / Parent / Guardian, Accepts Plan and Informed Consent Obtained Additional Comments: covid test negative History Surgery Operation Date: 12/24/20 09:10 Proposed Procedures p Right Open Inguinal Hernia Repair - Jostin Aly MD, FACS Height/Weight Height: 5 ft 8 in Weight: 78.925 kg Allergies Allergy/AdvReac Type Severity Reaction Status Date / Time simvastatin Allergy Intermediate LEG CRAMPS Verified 12/24/20 08:10 Medications Home Medications Medication Instructions Recorded Confirmed Last Taken ascorbic acid (vitamin C) 500 mg 500 mg PO QAM 07/23/19 12/24/20 12/21/20 tablet cholecalciferol (vitamin D3) 25 1,000 units PO QAM 07/23/19 12/24/20 12/22/20 08:00 mcg (1,000 unit) capsule clotrimazole-betamethasone 1 appln TOP UD PRN 12/05/19 12/18/20 Unknown glucosamine sulfate 1,000 mg PO BID 12/05/19 12/24/20 12/22/20 20:00 vitamin B complex 1 cap PO QAM 12/05/19 12/24/20 12/22/20 08:00 pantoprazole 40 mg tablet,delayed 40 mg PO QAM #90 tab 02/21/20 12/24/20 12/24/20 07:00 release carvedilol 25 mg tablet 25 mg PO BID #180 tab 04/18/20 12/24/20 12/24/20 07:00 Eliquis 5 mg PO BID 05/24/20 12/24/20 12/20/20 Wheeled Walker #1 ea 06/11/20 12/18/20 Unknown atorvastatin 40 mg tablet 40 mg PO HS #90 tab 09/24/20 12/24/20 12/23/20 22:00 levothyroxine 75 mcg tablet 75 mcg PO DAILY #90 tab 11/26/20 12/24/20 12/22/20 08:00 losartan 100 mg tablet 100 mg PO QPM #90 tab 11/26/20 12/18/20 Unknown aspirin 81 mg tablet,delayed 81 mg PO .QOD tab 12/11/20 12/24/20 12/20/20 release amoxicillin 500 mg tablet 2,000 mg PO UD PRN #4 tab 12/18/20 12/24/20 12/17/20 dutasteride-tamsulosin [Samantha] 1 cap PO DAILY 12/24/20 12/24/20 12/23/20 20:00 Active Medications Generic Name Dose Route Start Last Admin Trade Name Ramona PRN Reason Stop Dose Admin Lactated Ringer's 1,000 mls @ 15 mls/hr 12/24/20 06:00 12/24/20 09:16 Lr IV 12/25/20 05:59 Infused .Q24H QUINCY Infusion Cefazolin Sodium 2,000 mg in 15 mls @ 3.75 mls/min 12/24/20 06:00 12/24/20 09:16 Ancef 2000mg IV 12/24/20 18:00 3.75 mls/min PREOP QUINCY Administration Protocol NPO Date Last Intake of Fluids: 12/23/20 Time Last Intake of Fluids: 21:00 Date Last Intake of Solids: 12/23/20 Time Last Intake of Solids: 16:00 Past Medical History Medical History Anticoagulant long-term use Atrial fibrillation FOLLOW WITH DR PALOMINO Biventricular ICD (implantable cardioverter-defibrillator) in place PACEMAKER/ICD COMBO - [employer] BPH (benign prostatic hyperplasia) Cardiomyopathy CHB (complete heart block) Chronic kidney disease with symptom management only, stage 3 (moderate) Hearing deficit History of COVID-19 10/16/2020 TESTED AT [facility] (LOW GRADE FEVER/BODY ACHES) History of pilonidal cyst HTN (hypertension) Hx of venous thrombosis and embolism HX OF 1985 AND PT REPORTS HAS HAD BLOOD CLOT IN LEFT LEG FOR YRS Hx pulmonary embolism 1984 Hyperlipidemia Hypothyroidism Osteoarthritis Spinal stenosis Exercise / Class Metabolic Activity III < 4 Walking/Shop/Light housework Past Family History Family History Brother , AGE 63 Diabetes Myocardial infarction Father , AGE 65 Diabetes Heart disease Mother , AGE 84 Myocardial infarction Other COPD (chronic obstructive pulmonary disease) Cardiomyopathy Hypertension No family history of adverse response to anesthesia Ovarian cancer Skin cancer (melanoma) Stroke Tuberculosis Past Surgical History Surgical History History of anesthesia reaction AFTER HEART SURGERY COULDN'T BE STILL BECAME VERY NERVOUS History of cholecystectomy History of coronary artery bypass graft [address] [facility] - X 3 History of cystoscopy History of esophagogastroduodenoscopy (EGD) History of hip replacement RIGHT History of liver biopsy History of total knee replacement LEFT -- [facility] 06/22/20. Past Anesthesia History No Hx of Anesthesia Complications and No Family Hx of Anesthesia Complications History of PONV No Hx of PONV and No Hx of Motion Sickness Social History Smoking Status: Never smoker Do You Dip or Chew Tobacco: No ("QUIT CHEWING SNUFF A LONG TIME AGO") Hx Alcohol Use: Yes Alcohol type: wine alcohol intake frequency: holidays/special occasions only Hx Substance Use: No substance use type: does not use Physical Exam Vital Signs Last Vital Signs Temp 36.5 C 12/24/20 08:21 Pulse 79 12/24/20 08:21 Resp 20 12/24/20 08:21 BP 183/96 H 12/24/20 08:21 Pulse Ox 99 12/24/20 08:21 Constitutional average body habitus ENMT Mouth: no dentition abnormality Thyromental Distance: > or= 3.5 Finger Breadths Mallampati Class: II Neck normal visual inspection, trachea midline and + facial hair; neck extension not limited Respiratory normal respiratory effort Auscultation: lungs clear to auscultation bilaterally Cardiovascular Rate/Rhythm: regular rate and regular rhythm Heart Sounds: no murmur Vessels: no carotid bruit Musculoskeletal Spine: normal cervical ROM Extremities: extremities normal to inspection Neurologic moves all extremities Motor/Sensory: no sensory deficit Psychiatric Orientation: alert and oriented x 3 Testing Laboratory Results 12/18/20 WBC: 6.20 H/H: 11.8/36.7 PLATELETS: 175 SODIUM: 139 POTASSIUM: 4.3 CHLORIDE: 110 CO2: 26 BUN: 23 CREATININE: 1.10 GLUCOSE: 111 *chronic anemia, baseline HGB ~ 12 Other Testing Electrocardiogram Date: 05/25/20 Ventricular paced rhythm at 69 bpm. Chest X-Ray Date: 05/25/20 IMPRESSION: 1. Small right pleural effusion and trace left pleural effusion 2. No current evidence of failure 3. No evidence of focal pulmonary consolidation Echocardiogram Date: 09/29/19 EF: 50-55% [place] not well visualized but appears to be akinetic. Otherwise no regional wall motion abnormalities. Septal motion consistent with pacemaker. No LVH. Mildly dilated right ventricle with mildly reduced systolic function. Biatrial dilation. Mild aortic stenosis with trace regurgitation (MG 10mmHg, PANCHO 1.2-1.3cm2). Mild to moderate mitral regurgitation. Moderate tricuspid regurgitation. Moderate pulmonary hypertension. Estimated RVSP 50 mmHg. No significant change from prior study on 09/01/2018. Stress Test Date: 09/29/19 Impression: 1. There is no significant ischemia suggested. 2. Mid to distal anterior infarct with jigna-infarct ischemia. 3. Mid to distal inferior infarct. 4. Apical infarct. 5. Moderately reduced LV systolic function. EF 39%. 6. Akinesis of the mid to distal anterior, mid to distal inferior, and apical wall segments. Otherwise global hypokinesis. 7. Indeterminate Lexiscan ECG. Pacer/ICD Interrogation 08/27/20 Model: Medtronic Implantation date: 04/22/18 Indication: ischemic CM (which has now resolved) Mode: DDDR Pacin.5% AP, 92.8% GAS SINGER Summary: Remote report reviewed. Known atrial fibrillation. Patient is on Eliquis. PT 0. VTNS 0. AT/AF 1. OptiVol within normal limits.
--- NOTE | 2020-12-24 06:59 | History & Physical Bridge Note ---
Date of Service December 24, 2020 History & Physical Bridge Note I have examined the patient, reviewed the History & Physical and in the interval since the performance of the History & Physical I have noted the following changes of clinical significance: no changes noted
[~2020-12-24 07:42] MED LIST changes: -ACETAMINOPHEN 500 MG TAB PO SCH; -BUPIVACAINE 0.5 % 5 MG/1 ML PF 10ML VIAL ONE; -BUPIVACAINE LIPOSOME/PF 266 MG, BUPIVACAINE/EPINEPHRINE 50 ML, SODIUM CHLORIDE 0.9% 30 ... INFIL SCH; -BUPIVACAINE/EPINEPHRINE 0.25% 1:200,000 30 ML VIAL ONE; -CEFAZOLIN 2000MG 2,000 MG/15 ML SYR IV SCH; -FAMOTIDINE 20 MG TAB PO SCH; -GABAPENTIN 300 MG CAP PO SCH; +LR 15ML/HR IV SCH; -LR 500ML BOLUS, THEN 15ML/HR IV SCH; -LR 60ML/HR IV SCH; -METOCLOPRAMIDE HCL 10 MG TABLET PO SCH; +ceFAZolin 2000MG 2,000 MG/15 ML SYR IV SCH
[2020-12-24] MEDS ORDERED: fentaNYL citrate 100 MCG/2 ML VIAL ONE (08:55)
[2020-12-24] MEDS ORDERED: GLYCOPYRROLATE 0.2 MG/ML VIAL ONE (08:56)
[2020-12-24] MEDS ORDERED: LIDOCAINE HCL 2% 2 ML VIAL/AMP(20MG/ML) INFIL ONE (08:56)
[2020-12-24] MEDS ORDERED: PROPOFOL IV EMULSION 10 MG/ML 20 ML VIAL IV ONE (08:56)
[2020-12-24] MEDS ORDERED: NEOSTIGMINE METHYLSULFATE 5 MG/5 ML SYR ONE (08:56)
[2020-12-24] MEDS ORDERED: ONDANSETRON INJ 2 MG/ML 2 ML VIAL ONE (08:56)
[2020-12-24] MEDS ORDERED: ROCURONIUM BROMIDE 10 MG/ML 5 ML VIAL IV ONE ×2 (08:56→09:41)
[2020-12-24] MEDS ORDERED: DEXAMETHASONE SOD INJ 4 MG/ML VIAL ONE (08:56)
[2020-12-24] MEDS ORDERED: BUPIVACAINE 0.5 % 5 MG/1 ML MPF 30ML VIAL ONE (09:02)
[2020-12-24] MEDS ORDERED: PHENYLEPHRINE 100MCG/ML 5ML SYR ONE (09:41)
--- NOTE | 2020-12-24 10:14 | Post Operative Brief Note ---
PG Immediate Post Op with CF Date of Surgery December 24, 2020 Pre & Post Diagnosis Operation Date: 12/24/20 09:10 Pre-Op Diagnosis: Right Inguinal Hernia Post-Op Diagnosis: Right Inguinal Hernia I identified the patient and participated in the time-out.: Yes Procedure Operation Date: 12/24/20 09:10 Actual Procedures p Right Open Inguinal Hernia Repair with mesh(Right) - Jostin Aly MD, FACS Surgeon Jostin Aly MD, FACS Lead Fabricator Ciarra Lamb Estimated Blood Loss 5 Findings Consistent with Post-Op Diagnosis
[2020-12-24] MEDS ORDERED: ACETAMINOPHEN 1,000 MG/100 ML VIAL IV ONE (10:15)
[2020-12-24] MEDS ORDERED: ATROPINE SULFATE 0.1 MG/ML 10ML SYR IV PRN (10:34)
[2020-12-24] MEDS ORDERED: ePHEDrine sulfate 50 MG/ML AMP IV PRN (10:34)
[2020-12-24] MEDS ORDERED: PROMETHAZINE HCL 12.5 MG in SODIUM CHLORIDE 0.9% 50 ML IV PRN ×2 (10:34→11:45)
[2020-12-24] MEDS ORDERED: ONDANSETRON INJ 2 MG/ML 2 ML VIAL IV PRN ×2 (10:34→11:45)
[2020-12-24] MEDS ORDERED: fentaNYL citrate 100 MCG/2 ML VIAL IV PRN (10:34)
[2020-12-24] MEDS ORDERED: LABETALOL HCL IV 5 MG/ML 20ML IV PRN (10:34)
[2020-12-24] MEDS ORDERED: NALOXONE HCL 0.4 MG/1 ML VIAL/CARP IV PRN (10:34)
--- NOTE | 2020-12-24 11:04 | Anesthesiology Progress Note ---
Date of Service December 24, 2020 Anesthesia Post Procedure Vital Signs Vital Signs: Temp Pulse Pulse Resp BP Pulse Ox 12/24/20 10:55 36.5 C 62 14 126/62 99 12/24/20 10:45 62 19 127/65 99 12/24/20 10:35 60 19 129/73 100 12/24/20 10:29 36.2 C L 60 20 125/65 100 12/24/20 08:21 36.5 C 79 20 183/96 H 99 Transfer of Care Handoff Completed per policy Notes Mental Status: alert / awake / arousable Patient Amnestic to Procedure: Yes Nausea / Vomiting: adequately controlled Pain: adequately controlled Airway Patency, RR, SpO2: stable & adequate BP & HR: stable & adequate Hydration State: stable & adequate Anesthetic Complications: no major complications apparent
[2020-12-24] MEDS ORDERED: HYDROCODONE/ACETAMOPHEN 5/325MG TAB PO PRN ×2 (11:45)
[2020-12-24] MEDS ORDERED: SODIUM CHLORIDE 0.9% 1000ML 1,000 ML IV SCH (11:45)
[2020-12-24] MEDS ORDERED: ACETAMINOPHEN 325 MG TAB PO PRN (11:45)
--- NOTE | 2020-12-24 11:51 | Operative Report (OR) ---
DATE OF OPERATION: 12/24/2020 NAME OF OPERATION: Open right inguinal hernia repair. PREOPERATIVE DIAGNOSIS: Right inguinal hernia. POSTOPERATIVE DIAGNOSIS: Right inguinal hernia with direct defect. STAFF SURGEON: Jostin Aly MD. IRONWORKER: Sarmad Lamb PA-C. ANESTHESIA: General. DESCRIPTION OF PROCEDURE: The patient was brought in the operating room and placed on the operating table in supine position. His lower abdomen was prepped and draped in usual fashion. My personal injury legal assistant helped with prepping, draping, hernia repair and closure of the wound. Right side was approached. Skin and subcutaneous tissue were anesthetized using 0.5% plain Marcaine. Incision made parallel to the inguinal ligament in the right lower quadrant carrying dissection down through the adipose tissue, identifying the external oblique fibers, incising them along their length to the external ring. The patient had a very large hernia, which extended into the scrotum. It was mobilized, it was apparent this was a direct hernia with large lipomas and large sac. The site was reduced and then the tissue with the inguinal ligament to the transversalis fascia was reapproximated partially using 0 silk suture. I did make a counter incision superiorly through the oblique fascia to expose the muscle. A large mesh plug was placed into the defect, secured to surrounding tissue using 0 silk suture. Large mesh patch was then placed into the floor of the canal around the cord structures, secured using 2-0 Ethibond suture. The site was irrigated with antibiotic solution and the external oblique fibers closed over the mesh around the cord structures using 2-0 Ethibond suture. The site was anesthetized using 0.5% plain Marcaine. Subcutaneous tissue reapproximated using 2-0 plain suture and then the skin reapproximated using 4-0 nylon suture and Steri-Strips. The patient was transferred to recovery room in stable condition. I attest to the content of the Intraoperative Record and any orders documented therein. Any exception s are noted below.
--- NOTE | 2020-12-24 14:39 | Consultation ---
Date of Consultation December 24, 2020 Assessment & Plan (1) Right inguinal hernia: s/p open hernia repair today by Dr Aly. doing well post-op. I corresponded with Dr Aly and we can resume eliquis in 48 hours (Thursday). I agree with low-rate IV fluids at 50cc/hr until the am then saline lock. (2) CAD, multiple vessel: h/o CABG. no ischemic symptoms post-op. cont beta sahra, statin, ARB. asa/eliquis on hold for now. (3) Biventricular ICD (implantable cardioverter-defibrillator) in place: noted no recent discharges examines in NSR. (4) HTN (hypertension): BPs mildly high post-op, likely due to pain. resume normal outpatient meds and trend the BPs. (5) Hypothyroidism: most recent TSH wnl cont synthroid (6) BPH with obstruction/lower urinary tract symptoms: cont dutastseride/tamsulosin combo pill no voiding issues at this time (7) Chronic kidney disease, stage III (moderate): preop blood work on 12/18 with Cr of 1.1 (8) Paroxysmal atrial fibrillation: examines NSR post-op. resume eliquis on Thursday of this week. cont beta sahra. (9) Ischemic cardiomyopathy: past echo with EF 50-55% (09/2019). appears compensated on exam post-operatively. continue BB. does not use daily diuretic at home. caution with IV fluids but suspect the 50cc/hr should not be an issue. (10) Prediabetes: previous a1c of 5.7% in 2020. change regular diet to T2DM. suspect we will be able to control his BSGs with diet alone. pre-dinner BSG was 130 today. d/c any further BSG checks. (11) DVT prophylaxis: TEDS, SCDs resume eliquis in 48 hours Thank you for this consult. We will follow with you. History of Present Illness Requesting Physician: Jostin Aly MD Reason for Consultation: post-op medical management Attending Physician: Jostin Aly MD, [facility] History of Present Illness 85yo male with history of CABG at the [facility] in 1986, h/o LLE DVT with PE in 1984, pacer/AICD, hypothyroidism, HTN, CKD stage 3, PAF on chronic eliquis, & BPH who presented today for elective right inguinal hernia repair by Dr Aly. Patient states it had been present for many years but in the last month he had noted that with any straining the hernia was protruding significantly and there was concern that he would ultimately have incarceration and/or strangulation. Thus, his PCP referred him to Dr Aly for consideration of repair. I saw Mr Figueroa post-op on the surgery floor. He was without any complaints of chest pain, dyspnea, abdominal pain, nausea or vomiting. He has mild pain over the right inguinal region. Patient had COVID-19 in 09/2020 and has made a full recovery without residual effects. In fact he is back to work doing part-time work for his [employer] company without any limitations. He has been off his eliquis for 3 days pre-op. Eliquis to be resumed in about 48 hours post-op. Allergies Allergy/AdvReac Type Severity Reaction Status Date / Time simvastatin Allergy Intermediate LEG CRAMPS Verified 12/24/20 08:10 Home Medications Medication Instructions Recorded Confirmed Type ascorbic acid (vitamin C) 500 mg 500 mg PO QAM 07/23/19 12/24/20 History tablet cholecalciferol (vitamin D3) 25 1,000 units PO QAM 07/23/19 12/24/20 History mcg (1,000 unit) capsule clotrimazole-betamethasone 1 appln TOP UD PRN 12/05/19 12/18/20 History glucosamine sulfate 1,000 mg PO BID 12/05/19 12/24/20 History vitamin B complex 1 cap PO QAM 12/05/19 12/24/20 History pantoprazole 40 mg tablet,delayed 40 mg PO QAM #90 tab 02/21/20 12/24/20 Rx release carvedilol 25 mg tablet 25 mg PO BID #180 tab 04/18/20 12/24/20 Rx Eliquis 5 mg PO BID 05/24/20 12/24/20 History Wheeled Walker #1 ea 06/11/20 12/18/20 Rx atorvastatin 40 mg tablet 40 mg PO HS #90 tab 09/24/20 12/24/20 Rx levothyroxine 75 mcg tablet 75 mcg PO DAILY #90 tab 11/26/20 12/24/20 Rx losartan 100 mg tablet 100 mg PO QPM #90 tab 11/26/20 12/18/20 Rx aspirin 81 mg tablet,delayed 81 mg PO .QOD tab 12/11/20 12/24/20 History release amoxicillin 500 mg tablet 2,000 mg PO UD PRN #4 tab 12/18/20 12/24/20 Rx dutasteride-tamsulosin [Samantha] 1 cap PO DAILY 12/24/20 12/24/20 History Patient History Medical History Anticoagulant long-term use Atrial fibrillation FOLLOW WITH DR PALOMINO Biventricular ICD (implantable cardioverter-defibrillator) in place PACEMAKER/ICD COMBO - [employer] BPH (benign prostatic hyperplasia) Cardiomyopathy CHB (complete heart block) Chronic kidney disease with symptom management only, stage 3 (moderate) Hearing deficit History of COVID-19 10/16/2020 TESTED AT [facility] (LOW GRADE FEVER/BODY ACHES) History of pilonidal cyst HTN (hypertension) Hx of venous thrombosis and embolism HX OF 1985 AND PT REPORTS HAS HAD BLOOD CLOT IN LEFT LEG FOR YRS Hx pulmonary embolism 1984 Hyperlipidemia Hypothyroidism Osteoarthritis Spinal stenosis Surgical History History of anesthesia reaction AFTER HEART SURGERY COULDN'T BE STILL BECAME VERY NERVOUS History of cholecystectomy History of coronary artery bypass graft 1987 [facility] - X 3 History of cystoscopy History of esophagogastroduodenoscopy (EGD) History of hip replacement RIGHT History of liver biopsy History of total knee replacement LEFT -- [facility] 06/22/20. Family History Brother , AGE 63 Diabetes Myocardial infarction Father , AGE 65 Diabetes Heart disease Mother , AGE 84 Myocardial infarction Other COPD (chronic obstructive pulmonary disease) Cardiomyopathy Hypertension No family history of adverse response to anesthesia Ovarian cancer Skin cancer (melanoma) Stroke Tuberculosis Social History Smoking Status: Never smoker Second Hand Exposure: No; Do You Dip or Chew Tobacco: No ("QUIT CHEWING SNUFF A LONG TIME AGO"); Tobacco Cessation Education Requested by Patient: No Hx Alcohol Use: Yes Alcohol type: wine Hx Substance Use: No Preferred Language: Wolof Communication Ability: Effective Visual Impairment: Partially Limited Hearing Ability: Use of Hearing Aid Shuttle Repairer Required: No Beliefs That Will Affect Care: None marital status: Current Living Situation: Spouse current occupational status: employed and retired current occupation: [employer] How many Children do You have: 3 Feels Safe at Home: Yes Safety Concerns: Feels Safe At This Time Childhood Exposure to Second-Hand Smoke: Yes caffeine: No Dental Care, Regularly: Yes Physical Activity Frequency: Does not Exercise Seatbelt Use: always Sunscreen Use: No Assistive Devices: Cane Assistive Devices Comment: READING GLASSES, HAS HEARING AIDS BUT DO NOT WEAR THEM Review of Systems Constitutional: no fever, no chills, no fatigue, no weakness, no anorexia, no weight loss and no weight gain Eyes: no worsening vision Ear, Nose, Mouth, Throat: no loss of taste or smell Respiratory: no cough, no dyspnea and no dyspnea on exertion Cardiovascular: no chest pain and no edema Gastrointestinal: no abdominal pain, no nausea, no vomiting and no diarrhea/loose stools Genitourinary: no difficulty urinating Musculoskeletal: no joint pain Integumentary: no rash Neurologic: no localized weakness Psychiatric: no depression Endocrine: denies diabetes Physical Exam Constitutional: well developed, well nourished and average body habitus; no acute distress and no altered mental status Eyes: PERRL ENMT: Mouth: + dry oral mucous membranes; no oropharynx abnormality Neck: trachea midline, no thyromegaly Respiratory: normal respiratory effort, lungs clear to auscultation no respiratory distress Auscultation: no crackles and no wheezes Cardiovascular: Rate/Rhythm: regular rate and regular rhythm Heart Sounds: normal S1, normal S2 and + murmur (1/6 systolic LSB) Vessels: posterior tibial pulses present and dorsalis pedis pulses present; no JVD Extremities: no edema Gastrointestinal (Abdomen): normal bowel sounds, soft, nontender, no hepatosplenomegaly right groin/inguinal region with large dressing in place Musculoskeletal: no cyanosis or clubbing, extremities motor strength 5/5 Skin: no rashes, warm and dry Neurologic: deep tendon reflexes 2+ bilaterally and moves all extremities; no focal motor deficits Psychiatric: A+Ox3, euthymic affect Lymphatic: no cervical lymphadenopathy Results & Data ([facility]) Vital Signs (Past 12 Hours) Vital Signs Temp Pulse Pulse Resp BP Pulse Ox 12/24/20 11:05 61 15 137/58 L 99 12/24/20 10:55 36.5 C 62 14 126/62 99 12/24/20 10:45 62 19 127/65 99 12/24/20 10:35 60 19 129/73 100 12/24/20 10:29 36.2 C L 60 20 125/65 100 12/24/20 08:21 36.5 C 79 20 183/96 H 99 Laboratory Results preop labs - 12/18/20 - Hb 11.8 Cr 1.1 COVID-19 PCR positive Diagnostic Findings CT abd/pelvis 12/17/20 - IMPRESSION: 1. Moderate sized right inguinal hernia contains mesenteric fat, trace free fluid and nonobstructed ileum. Additionally, a portion of the urinary bladder partially extends into the hernia sac. 2. No bowel obstruction. 3. Extensive colonic diverticulosis. 4. Trace left and small right pleural effusions. 5. Additional findings as above. PG Care Time/CCT Total # of Minutes Spent Total Time Spent with Patient: Total time spent is greater than 50% in coordination of care (as documented) at patient's floor/unit and/or counseling patient: Coding Level of Care Code 89556 Subseq Hosp Care Lvl 3 Diagnoses Right inguinal hernia K40.90 CAD, multiple vessel I25.10 Biventricular ICD (implantable cardioverter-defibrillator) in place Z95.810 HTN (hypertension) I10 Hypertension type: essential hypertension Hypothyroidism E03.9 BPH with obstruction/lower urinary tract symptoms N40.1; N13.8 Chronic kidney disease, stage III (moderate) N18.3 Paroxysmal atrial fibrillation I48.0 Ischemic cardiomyopathy I25.5 Prediabetes R73.03 DVT prophylaxis Z29.9 (1) HTN (hypertension) Hypertension type: essential hypertension Qualified Code(s): I10 - Essential (primary) hypertension
[2020-12-24] MEDS: ceFAZolin 1000MG 1,000 MG/7.5 ML SYR IV SCH (16:20)
[2020-12-24] MEDS ORDERED: COUGH DROP (SUGAR FREE) LOZ 24 LOZ/1 BOX BUCCAL STA (18:56)
[2020-12-24] MEDS ORDERED: COUGH DROP (SUGAR FREE) LOZ 24 LOZ/1 BOX BUCCAL ONE (19:04)
[2020-12-24] MEDS: carvediloL 25 MG TAB PO SCH (20:31)
[2020-12-24] MEDS: DOCUSATE SODIUM/SENNA 50/8.6MG TAB PO SCH (20:45)
[2020-12-24] MEDS: MAGNESIUM HYDROXIDE SUSP 30 ML UDC PO SCH (20:45)
[2020-12-24] MEDS ORDERED: ATORVASTATIN 40 MG TAB PO SCH (21:00)
[2020-12-24] MEDS ORDERED: LOSARTAN POTASSIUM 50 MG TAB PO SCH (21:00)
[2020-12-25] MEDS: ceFAZolin 1000MG 1,000 MG/7.5 ML SYR IV SCH ×2 (00:56→09:13)
[2020-12-25 06:24] LABS: BUN Creatinine Ratio 23.4 (10-20); Calcium 8.8 mg/dl (8.5-10.1); Creatinine Clr Calc Pharmacy 41.6 ml/min; Est GFR (Non-African American) 53.5; Potassium 4.2 mmol/L (3.5-5.1)
[2020-12-25] MEDS ORDERED: PANTOprazole 40 MG TAB PO SCH (09:00)
[2020-12-25] MEDS ORDERED: TAMSULOSIN HCL PO SCH ×2 (09:00→21:00)
[2020-12-25] MEDS ORDERED: DUTASTERIDE PO SCH ×2 (09:00→21:00)
[2020-12-25] MEDS ORDERED: LEVOTHYROXINE SODIUM 75 MCG TABLET PO SCH (09:00)
[2020-12-25] MEDS: DOCUSATE SODIUM/SENNA 50/8.6MG TAB PO SCH (09:13)
[2020-12-25] MEDS: MAGNESIUM HYDROXIDE SUSP 30 ML UDC PO SCH (09:14)
[2020-12-25] MEDS: carvediloL 25 MG TAB PO SCH (09:14)
[2020-12-25] MEDS ORDERED: COUGH DROP (SUGAR FREE) LOZ 24 LOZ/1 BOX BUCCAL ONE (09:46)
--- NOTE | 2020-12-26 12:28 | Discharge Summary (DS) ---
PRINCIPAL DIAGNOSIS: Right inguinal hernia. PROCEDURE: The patient underwent open right inguinal hernia repair. The hernia was very large. HISTORY OF PRESENT ILLNESS: The patient is an 85-year-old male with known right inguinal hernia, which is getting very large down into his scrotum containing bowel. He was brought into the hospital on 12/24/2020 where he underwent open right inguinal hernia repair and has done very well in the hospital, felt stable for discharge home on 12/25/2020 to be followed in the surgical clinic within 1 week.
== END 2020-12-25 10:21 | disposition home health service (06) ==
LOC: ASU 07:42 → 3N 07:42